=== PATIENT | female | born 1945 | race Caucasian/White ===

== ENCOUNTER 2017-10-15 15:29 | Inpatient (IN) | payer MEDICARE ==
[2017-10-15 17:04] LABS: Hematocrit 28 % (35-47); Mean Corpuscular HGB Conc 33 g/dl (31-36); Mean Corpuscular Hemoglobin 26 pg (27-31); Mean Corpuscular Volume 79 fL (80-97); Mean Platelet Volume 7 um3 (7.4-10.4); Platelet Count 291 10^3/ul (150-450); Red Blood Count 3.47 10^6/ul (4.0-5.4); Red Cell Distribution Width 15 % (10.5-15); White Blood Count 13.4 10^3/ul (3.5-10.8)
[2017-10-15 17:28] LABS: ABS Basophils 0 10^3/ul (0-0.2); ABS Eosinophils 0 10^3/ul (0-0.6); ABS Lymphocytes 0.5 10^3/ul (1.0-4.8); ABS Monocytes 0.4 10^3/ul (0-0.8); ABS Neutrophils 12.4 10^3/ul (1.5-7.7); ABS Nucleated RBC 0 10^3/ul; Eosinophil % 0.1 % (0-6); Lymphocyte % 3.4 % (25-47); Nucleated Red Blood Cells % 0.1
--- NOTE | 2017-10-15 19:10 | ED ---
Lopez Velásquez Stephanie, scribed for Tommie Colvin MD on 10/15/17 at 1620 . Skin Complaint - HPI Summary HPI Summary: The pt is a 71 y/o F BIBA with c/o a decubitus ulcer that was noticed after Thanksgiving. The pt was called in by Dr. Ulloa. The pt has MS. - History of Current Complaint Chief Complaint: EDRashSkinAbscess Time Seen by Provider: 10/15/17 15:38 Stated Complaint: RASH ON BUTTOCKS Hx Obtained From: Family/Sheet Heater Helper, EMS Pain Intensity: 0 Pain Scale Used: 0-10 Numeric Aggravating Symptom(s): Nothing Alleviating Symptom(s): Nothing - Allergy/Home Medications Allergies/Adverse Reactions: Allergies Allergy/AdvReac Type Severity Reaction Status Date / Time Adhesive Tape Allergy Unknown See Comment Verified 03/19/17 13:25 [Tegaderm Dressing] Chocolate Allergy Unknown See Comment Verified 03/19/17 13:25 Iodine AdvReac Unknown Unknown Verified 03/19/17 13:25 Reaction Details SALMON Allergy Unknown See Comment Uncoded 03/19/17 13:25 Home Medications: Home Medications Cholecalciferol CAP/TAB(NF) [Vitamin D3 CAP/TAB (NF)] 5,000 unit PO DAILY [History Confirmed 10/15/17] Coenzyme Q10 (NF) [Th Co Q-10] 1 cap PO DAILY 10/15/17 [History Confirmed ] Glucosamine CAP (NF) 1,000 cap PO DAILY 10/15/17 [History Confirmed 10/15/17] Magnesium Oxide TAB* [MagOx 400 TAB*] 400 mg PO DAILY 10/15/17 [History Confirmed 10/15/17] Neville-3 Fatty Acids (Nf) [Fish Oil (NF)] 1,000 mg PO BID 10/15/17 [History Confirmed 10/15/17] PMH/Surg Hx/FS Hx/Imm Hx History: Reports: Hx Kidney Stones, Hx Renal Disease Musculoskeletal History: Reports: Hx Osteoporosis - Cancer History Hx Chemotherapy: No Hx Radiation Therapy: No - Surgical History Surgery Procedure, Year, and Place: UROSTOMY; COLONOSTOMY; HYSTERECTOMY Infectious Disease History: No Infectious Disease History: Denies: Traveled Outside the [place] in Last 30 Days - Family History Known Family History: Positive: Unknown - The pt is unaware of any family history. - Social History Occupation: Retired Lives: With Family - Alcohol Use: None Hx Substance Use: No Substance Use Type: Reports: None Smoking Status (MU): Never Smoked Tobacco Review of Systems Negative: Fever Positive: Rash, Other - Open area to buttocks - ~ 3 inch [place] open area that is crater deep All Other Systems Reviewed And Are Negative: Yes Physical Exam - Summary Physical Exam Summary: Appearance: The patient is well-nourished in no acute distress and in no acute pain. Skin: The skin is warm and dry and skin color reflects adequate perfusion. There is a decubitus ulcer on the patient's buttock. HEENT: The head is normocephalic and atraumatic. The pupils are equal and reactive. The conjunctivae are clear and without drainage. Nares are patent and without drainage. Mouth reveals moist mucous membranes and the throat is without erythema and exudate. The external ears are intact. The ear canals are patent and without drainage. The tympanic membranes are intact. Neck: the neck is supple with full range of motion and non-tender. There are no carotid bruits. There is no neck vein distension. Respiratory: Chest is non-tender. Lungs are clear to auscultation and breath sounds are symmetrical and equal. Cardiovascular: Heart is regular rate and rhythm. There is no murmur or rub auscultated. There is no peripheral edema and pulses are symmetrical and equal. Abdomen: The abdomen is soft and non-tender. There are normal bowel sounds heard in all four quadrants and there is no organomegaly palpated. Musculoskeletal: There is no back tenderness noted. Extremities are non-tender with full range of motion. There is good capillary refill. There is no peripheral edema or calf tenderness elicited. Neurological: Patient is alert and oriented to person, place and time. The patient has symmetrical motor strength in all four extremities. Cranial nerves are grossly intact. Deep tendon reflexes are symmetrical and equal in all four extremities. Psychiatric: The patient has an appropriate affect and does not exhibit any anxiety or depression. Triage Information Reviewed: Yes Vital Signs On Initial Exam: Initial Vitals Temp Pulse Resp BP Pulse Ox 97.7 F 78 20 132/83 97 10/15/17 15:32 10/15/17 15:32 10/15/17 15:32 10/15/17 15:32 10/15/17 15:32 Vital Signs Reviewed: Yes Diagnostics - Vital Signs Vital Signs Temp Pulse Resp BP Pulse Ox 10/15/17 15:32 97.7 F 78 20 132/83 97 - Laboratory Lab Results: Lab Results 10/15/17 10/15/17 Range/Units 16:40 16:40 WBC 13.4 H (3.5-10.8) 10^3/ul RBC 3.47 L (4.0-5.4) 10^6/ul Hgb 9.0 L (12.0-16.0) g/dl Hct 28 L (35-47) % MCV 79 L (80-97) fL MCH 26 L (27-31) pg MCHC 33 (31-36) g/dl RDW 15 (10.5-15) % Plt Count 291 (150-450) 10^3/ul MPV 7 L (7.4-10.4) um3 Neut % (Auto) 93.2 H (38-83) % Lymph % (Auto) 3.4 L (25-47) % Clare % (Auto) 3.1 (1-9) % Eos % (Auto) 0.1 (0-6) % Baso % (Auto) 0.2 (0-2) % Absolute Neuts (auto) 12.4 H (1.5-7.7) 10^3/ul Absolute Lymphs (auto) 0.5 L (1.0-4.8) 10^3/ul Absolute Monos (auto) 0.4 (0-0.8) 10^3/ul Absolute Eos (auto) 0 (0-0.6) 10^3/ul Absolute Basos (auto) 0 (0-0.2) 10^3/ul Absolute Nucleated RBC 0 10^3/ul Nucleated RBC % 0.1 C-Reactive Protein 166.20 H (< 5.00) mg/L Result Diagrams: 10/15/17 16:40 Lab Statement: Any lab studies that have been ordered have been reviewed, and results considered in the medical decision making process. Course/Dx - Course Course Of Treatment: Ms Allen has an impressive decubitus ulcer and is being admitted by Diana Jordan - Diagnoses Provider Diagnoses: Decubitus ulcer - Physician Notifications Instructed by Provider To: Admit As Inpatient Discharge - Discharge Plan Condition: Stable Disposition: ADMITTED TO [facility] Referrals: Diana Jordan MD [Primary Care Provider] - The documentation as recorded by the Lopez macario Stephanie accurately reflects the service I personally performed and the decisions made by me, Tommie Colvin MD.
[2017-10-15 22:01] LABS: EGFR Non-African American 116.6 (>60)
--- NOTE | 2017-10-16 | HP ---
HISTORY AND PHYSICAL: DATE OF ADMISSION: 10/15/17 HISTORY OF PRESENT ILLNESS: Jyotsna Allen is a 71-year-old woman admitted with weakness and a left buttock decubitus ulcer with difficulty swallowing. The patient has a long history of multiple sclerosis with complications of neurogenic bladder, status post ileal conduit in 1998. She is also status post colostomy because of incontinence of bowels related to multiple sclerosis. She has had a progressive course of multiple sclerosis with decreased cognitive and physical function over many years. Her takes care of her at home. She has been nonambulatory for many years. She has had decubitus ulcers in the past , but not recently until about a month ago when her believes that her Roho cushion on which she sits did not have proper inflation. She developed irritation of the left buttock. Since that time, he has been trying to care for an open area, which has gotten worse. Along with this, she has had difficulty eating. A few weeks ago, she was able to feed herself. More recently , he has had to feed, her and taking several hours to eat a meal. Over the last few days, she has had difficulty swallowing. Last night, she only ate about one bite of dinner. This morning, however, she did eat breakfast, but he had to feed her and it took a long time to swallow. I had spoken with him last week, suggested she be evaluated, but he decided to wait until this week. She came to the emergency room and is being admitted at this time. PAST MEDICAL HISTORY: Significant for recurrent urinary tract infections, although this has been less of a problem in recent years. She has ureteral stents which get changed every couple of months at the [facility] in [place]. They were changed today. This is done by [facility] there. 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 She has a known kidney stone, which has been felt to be too large to remove. In 2004, she had sepsis due to staph aureus, non-MRSA. Past medical history is otherwise significant for multiple sclerosis since age 21, history of osteoporosis with fractures in her legs, history of chronic kidney disease. She had a previous history of hypertension and had been on lisinopril, but her blood pressure had been more normal recently and so the lisinopril had been stopped. PAST SURGICAL HISTORY: Includes sigmoid loop colostomy, creation of ileal conduit, hysterectomy, bilateral salpingo-oophorectomy, appendectomy, small bowel obstruction leading to lysis of adhesions in October 1999. CURRENT MEDICATIONS: As follows: 1. Probiotic 1 daily. 2. Selenium 200 mcg daily. 3. Folic acid 800 mcg daily. 4. Vitamin D3, 2000 units daily. 5. Ferrous gluconate 27 mg daily. 6. Zinc 50 mg daily. 7. Niacinamide 125 mg daily. 8. B12, 500 mcg daily. 9. Vitamin C 500 mg daily. 10. Vitamin E 400 units daily. 11. Pyridoxine (B6) 50 mg daily. 12. Vitamin K2, 40 mcg daily. 13. Magnesium oxide 400 mg daily. 14. Glucosamine 1000 mg daily. 15. Exeter-3 fatty acids 1000 mg b.i.d. 16. Coenzyme-Q10, 1 caps daily. ALLERGIES: To DITROPAN, IODINATED CONTRAST, TEGADERM. FAMILY HISTORY: Mother of bladder cancer at age 76. She had a history of breast cancer. Two maternal aunts have had bladder cancer. Father had Parkinson's disease in his 70s and at age 80. One sister recently while being treated for metastatic bile duct cancer. HABITS: Tobacco, never. EtOH, none. Caffeine, none. REVIEW OF SYSTEMS: General: She has been quite weak. Her appetite has been diminished (see above). She has been cold, but denies chills or sweats. She has not had a fever. She has been sleeping much of the time. Skin: See above. HEENT: Negative. Nodes: Negative. Heme: See above. Endocrine: Negative. Respiratory: Negative. Cardiovascular: See above. GI: See above. HEADER DOCK: Menopausal. See above. Musculoskeletal: See above. Neuro: See above. PHYSICAL EXAMINATION GENERAL: She is a thin and cachectic appearing white female lying on the stretcher. Alert. Her is speaking and answering most of her questions , but she is able to talk but speech is slurred. She is in no acute distress. VITAL SIGNS: Blood pressure 132/83, pulse 78, respirations 20, temperature 97.7 , O2 sat 97%. Her blood pressure was subsequently being measured with an automatic cuff and the readings were incorrect. When measured with a manual adult cuff (although too large for her, pediatric cuff not available in the ER) , blood pressure was 122/70 (versus 255/222 with the automatic cuff). SKIN: Shows 5.5 cm diameter ulcer extending down to the muscle of the left buttock with yellow tissue at the base. The skin around it is slightly pink, but no clear cellulitis. HEENT: Atraumatic, normocephalic. Full EOMs. Mucous membranes appear moist. NECK: Supple. There is no thyromegaly. CHEST: Clear to auscultation. HEART: Regular rhythm. Normal S1, S2. There are no murmurs, gallops or rubs. ABDOMEN: Distended, soft, nontender. There is an ileal conduit bag on the right. Urine looks dark. There is a colostomy bag on the left with liquid dark stool. She has no flank tenderness. Bowel sounds are present. EXTREMITIES: Thin. She has no edema. She has little movement of her upper extremities but no movement of her legs. Her feet are deviated to the left. BACK: Shows lordosis. NEUROLOGIC: Strength 1/5 upper extremities. Does not move lower extremities. LABORATORY DATA: CBC: WBC 13.4; H and H 9/28; MCV 79; PLT 291,000. Chemistries: Sodium 108, potassium 3.9, chloride 79, CO2 of 21, BUN/creatinine 20/0.52, glucose 106, calcium 8.4, CRP 166.20, albumin 2.8. Rest of the comprehensive metabolic panel is otherwise within normal limits. IMPRESSION: The patient with decubitus ulcer, for which we will get a surgical consultation. Her sodium is critically low and will start IV hypertonic saline. She is a DNR per previous wishes, MOLST form filled out and updated. I will not give her DVT prophylaxis since her mobility is no different in the hospital from what it has been at home. [id number]/[facility] #: [id number] [facility]
[2017-10-16] MEDS ORDERED: Sodium Chloride 3% HYPERTONIC* 500 ML IVPB SCH ×2 (01:00→06:00)
[2017-10-16 01:48] LABS: Urine Appearance Cloudy; Urine Blood 1+ (Negative); Urine Color Amber; Urine Ketones Trace (Negative); Urine Protein 2+(100 mg/dL) (Negative); Urine Urobilinogen Negative (Negative)
[2017-10-16 05:49] LABS: ABS Basophils 0 10^3/ul (0-0.2); ABS Eosinophils 0 10^3/ul (0-0.6); ABS Lymphocytes 0.7 10^3/ul (1.0-4.8); ABS Monocytes 0.7 10^3/ul (0-0.8); ABS Neutrophils 8.3 10^3/ul (1.5-7.7); ABS Nucleated RBC 0 10^3/ul; Eosinophil % 0.2 % (0-6); Hematocrit 23 % (35-47); Hemoglobin 7.9 g/dl (12.0-16.0); Mean Corpuscular HGB Conc 34 g/dl (31-36); Mean Corpuscular Hemoglobin 27 pg (27-31); Mean Corpuscular Volume 78 fL (80-97); Mean Platelet Volume 7 um3 (7.4-10.4); Nucleated Red Blood Cells % 0; Platelet Count 228 10^3/ul (150-450); Red Blood Count 2.97 10^6/ul (4.0-5.4); Red Cell Distribution Width 15 % (10.5-15); White Blood Count 9.7 10^3/ul (3.5-10.8)
[2017-10-16 06:04] LABS: EGFR Non-African American 149.2 (>60)
--- NOTE | 2017-10-16 07:47 | RAD ---
HISTORY: Abdominal distention COMPARISONS: September 25, 2016 TECHNIQUE: Multiple contiguous axial CT scans were obtained of the chest, abdomen, and pelvis, without intravenous contrast enhancement. Coronal and sagittal multiplanar reformations are submitted for review.. Oral contrast was not administered. The study is limited by the lack of intravenous contrast. This limits evaluation of the solid organs and vasculature. FINDINGS: CHEST NECK AND THYROID: The lower neck and thyroid are unremarkable. CHEST WALL: There is no lower cervical, axillary, or supraclavicular lymphadenopathy by size criteria. HEART AND PERICARDIUM: The heart is unremarkable. AORTA AND PULMONARY VASCULATURE: The aorta and pulmonary vasculature are normal. MEDIASTINUM: There is no mediastinal lymphadenopathy by size criteria. BETHANY: There is no hilar lymphadenopathy by size criteria. AIRWAY AND ESOPHAGUS: The airway is unremarkable, without endobronchial filling defect. The esophagus is grossly normal. LUNG PARENCHYMA: The lungs are clear. PLEURA: There are small bilateral, right greater than left, pleural effusions. BONES AND SOFT TISSUES: There is diffuse osteopenia. Mild degenerative changes are noted. ABDOMEN/PELVIS: LIVER: The liver is normal in shape, size, contour, and attenuation. BILE DUCTS: There is no intrahepatic or extrahepatic biliary dilatation. GALLBLADDER: The gallbladder is normal, without pericholecystic inflammatory change. PANCREAS: The pancreas is normal, without mass or ductal dilatation. SPLEEN: Normal in size and appearance. UPPER GI TRACT: Evaluation of the gastrointestinal tract is limited by incomplete gastric distention. The upper GI tract is unremarkable. SMALL BOWEL & MESENTERY: The small bowel is normal in contour, course, and caliber. There is no obstruction or dilatation. COLON: A colostomy is noted. There is a radiopaque foreign body noted at the stoma best seen on axial image 27 measuring 1 cm in size. There is large amount of stool within the colon. ADRENALS: Normal bilaterally. KIDNEYS: There are bilateral ureteral stents, though the position of the right ureteral stent is indeterminate and may be extrarenal. There are multiple calculi of the proximal left ureter and renal calyces bilaterally. There is no appreciable hydronephrosis. There is a small amount of calyceal gas in the right. BLADDER: The patient appears to be status post cystectomy with ileal conduit. Bilateral ureteral stents are noted. The position of the pelvic portion of the right ureteral stent is indeterminate and may be extrarenal. PELVIC ORGANS: The pelvic organs are not visualized. AORTA: The aorta is normal. IVC: Unremarkable LYMPH NODES: There is no lymphadenopathy by size criteria. ABDOMINAL WALL: There is no evidence for abdominal wall hernia. BONES AND SOFT TISSUES: There is a compression deformity of T12 which is new when compared to September 25, 2016. There is diffuse osteopenia. There are mild diffuse degenerative changes. OTHER: None IMPRESSION: 1. LIMITED STUDY. 2. SMALL BILATERAL PLEURAL EFFUSIONS, GREATER ON THE RIGHT THAN ON THE LEFT. 3. THE PATIENT IS STATUS POST COLOSTOMY. THERE IS A SMALL RADIOPAQUE FOREIGN BODY THE LEVEL OF THE STOMA. 4. THERE IS LARGE AMOUNT OF STOOL THROUGHOUT THE COLON. 5. THE PATIENT IS STATUS POST CYSTECTOMY WITH ILEAL CONDUIT. BILATERAL URETERAL STENTS ARE NOTED. THE POSITION OF THE RIGHT URETERAL STENT IS INDETERMINATE AND MAY BE EXTRARENAL. THERE IS BILATERAL NEPHROLITHIASIS. THERE IS NO HYDRONEPHROSIS. 6. THERE IS SMALL AMOUNT OF CALYCEAL GAS IN THE RIGHT WHICH MAY BE RELATED TO INSTRUMENTATION, THOUGH GAS PRODUCING INFECTION IS ALSO WITHIN THE DIFFERENTIAL. 7. THERE IS DIFFUSE OSTEOPENIA, WITH AN AGE-INDETERMINATE COMPRESSION DEFORMITY OF T12, WITHOUT OSSEOUS RETROPULSION, NEW WHEN COMPARED TO SEPTEMBER 25, 2016.
[2017-10-16] MEDS: Cholecalciferol TAB* 1000 UNITS PO SCH (09:46)
--- NOTE | 2017-10-16 11:31 | CONSULT ---
Consult Consult: CRITICAL CARE MEDICINE DATE: 10/16/17 TIME: 1100 PRIMARY CARE PROVIDER: Nikki REFERRING PROVIDER: Nikki REASON FOR CONSULT: assistance with severe hyponatremia and hypertonic saline HISTORY OF PRESENT ILLNESS: 71 F with h/o debilitating ms with neurogenic bladder requiring group home ileoconduit, ureteral stents, uti history, and sig loop colostomy presenting with progressive decline in function and thriving status with anorexia ensuing. Admitted with severe hyponatremia, decubitus, microcytic anemia, mod-severe malnutrition. REVIEW OF SYSTEMS: As per HPI, limited from pt. PAST MEDICAL HISTORY: Reviewed per HPI and H&P by Dr. Jordan. MEDICATIONS: Reviewed. ALLERGIES: Reviewed. SOCIAL HISTORY: Reviewed. . FAMILY HISTORY: Cancer PHYSICAL EXAM: frail, cachectic Vital Signs: Reviewed. Neurologic: awakens and communicates slowly. question if just baseline. HEENT: anciteric, poor dentition, mmm Cardiovascular: reg, no m Respiratory: clear, nml phases Abdomen: ilieostomy and ostomy intact, nt. Extremities: frail, no edema. back, sarcum not visulized. Access: piv LABS: Reviewed. Last Na 114 IMAGING: Reviewed. MEDICATIONS: Reviewed. ASSESSMENT/PLAN: 71 F Severe hyponatremia - component of hypovolemic and SIADH on perhaps more acute on chronic dynamics. Has chronic hyponatremia with labs here dictating 120s baseline. Not on diuretics, and acei in past no longer in use. Spot Na was slightly up. Sp gravity low. TSH and cortisol coming back ok. Her her loop ostomy and ileoconduit, decubitus likely contributing. Starting to improve numbers with 3% but probably won't really need this. Can support with low volume dose of 0.9%NS today and f/u Na q4 while monitoring urine out. Hopeful she can be chloride responsive and equilibrate without needing lasix on top if retaining water while loosing Na. HCO3 probably low due to GI losses vs RTA Moderate- severe malnutrition, phos needing f/u, swallow eval, and primary already consulting surgery for decubitus needs. ICU happy to help manage Na today and should be stabilized towards 120s at most come tomorrow. Supportive and preventative care per primary. Disposition: ICU today; likely floor late today or more likely tomorrow Code Status: DNR Critical Care Time: 35min Henny Griffin DO
[2017-10-16] MEDS ORDERED: NS 0.9% w/ 20 Meq KCL 1000 ML* 1,000 ML IV SCH (12:00)
[2017-10-16] MEDS ORDERED: Zosyn per Pharmacy* NOTE FOLLOW UP PRN (13:39)
[2017-10-16] MEDS ORDERED: ZOSYN 3.375 GM x ONE DOSE over 30 miuntes IVPB ×2 (14:00)
--- NOTE | 2017-10-16 14:07 | CONS ---
CC: Dr. Diana Jordan; [facility] SURGICAL CONSULTATION REPORT: DATE OF CONSULT: 10/16/17 LOCATION: The patient was seen in ICU room 7. HISTORY OF PRESENT ILLNESS: Our services were contacted by the admitting providers to evaluate Ms. Devan mims, a 71-year-old female, with longstanding history of MS, who has been mostly wheelchair bound, u tilizing ROHO cushions and notably developed a left buttock to sacral decubitus ulcer in the previous weeks. History was obtained through the chart. The patient nods her head and answers softly to mayank salomon, but most of this report was gathered through the chart. Current treatment at this point is D uoDERM dressing. The patient was admitted namely for severe hyponatremia, but was also noted to have this ulceration. The patient has had previous buttock and sacral ulcers in the past that had been treated expectantly and ended with healing. The patient has been diverted both the urinary and colonic with ostomies on her abdomen. These are being treated by the nurses and there are no complaints of these at this time . PAST MEDICAL HISTORY: Reviewed. PHYSICAL EXAM: The patient's temperature 99.8, she has been afebrile, this is T- max; heart rate in the 80s to 90s; blood pressure 91/41. The patient has body mass index of 13. Focus examination of t he left buttock reveals a 5 x 5 x 1 cm decubitus ulcer extending down to the muscular layer and overl bryson the periosteum, but without probing to bone, but does tunnel in the inferior aspect at approxima tely 7 o'clock to the thigh. This tunnel was approximately 9 cm and seropurulent drainage was noted. This was foul smelling and it was cultured. The periphery of the wound shows epibole with erythema . There is no tenderness. There is no fluctuance. The midline sacrum and right buttock are free of disease, but shows scarring from previous ulcers. DIAGNOSTIC STUDIES/LAB DATA: CT scan reviewed of the abdomen and pelvis: It does show air within th e soft tissues on the buttock, but it did not extend to the thigh. Labs show white count of 9.7. The patient presented with CRP of 166 and repeat today shows 133. Her sodium has been as low as 107 on this admission. IMPRESSION: A 71-year-old female with multiple sclerosis and severe malnutrition, now with hyponatre donna and recurring buttock ulceration with purulent drainage. RECOMMENDATION: 1. At this time is wound care. This will consist of iodoform packing to the upper thigh and wet-to- dry dressings daily and this has been ordered. 2. We will follow up cultures and the patient would likely benefit from starting of antibiotics. I will bring this up with the primary team. 3. Serial turning and special mattress if needed. The patient's nurses assured me she is being rota sebastian 2-hour basis without placing on her left side. We will follow every other day at this time. Ple ase feel free to contact the surgical team if needed. No debridement at this time as the patient is not a candidate for operative intervention. The operation at this point would possibly consist of chris ne biopsy. The patient could undergo triple bone phase study to see if there is involvement and the primary team could consider Infectious Disease consultation. [id number]/[facility] #: [id number]
[2017-10-16] MEDS: ZOSYN 3.375 GM Q8H per EXTENDED INFUSION IVPB SCH ×2 (18:34)
[2017-10-17] MEDS: ZOSYN 3.375 GM Q8H per EXTENDED INFUSION IVPB SCH ×6 (01:32→18:12)
[2017-10-17 05:55] LABS: Hematocrit 17 % (35-47); Hemoglobin 5.9 g/dl (12.0-16.0); Mean Corpuscular HGB Conc 34 g/dl (31-36); Mean Corpuscular Hemoglobin 27 pg (27-31); Mean Corpuscular Volume 78 fL (80-97); Mean Platelet Volume 7 um3 (7.4-10.4); Platelet Count 241 10^3/ul (150-450); Red Blood Count 2.21 10^6/ul (4.0-5.4); Red Cell Distribution Width 15 % (10.5-15); White Blood Count 9.8 10^3/ul (3.5-10.8)
[2017-10-17 06:02] LABS: EGFR Non-African American 153.4 (>60)
[2017-10-17 06:16] LABS: Hematocrit 21 % (35-47); Hemoglobin 7.1 g/dl (12.0-16.0)
[2017-10-17] MEDS: Cholecalciferol TAB* 1000 UNITS PO SCH (10:36)
[2017-10-17] MEDS ORDERED: Magnesium Sulfate 2 GM IV IVPB ONE (12:30)
[2017-10-18] MEDS: ZOSYN 3.375 GM IVPB SCH ×8 (01:45→20:27)
[2017-10-18 07:36] LABS: ABS Basophils 0 10^3/ul (0-0.2); ABS Eosinophils 0 10^3/ul (0-0.6); ABS Lymphocytes 0.7 10^3/ul (1.0-4.8); ABS Monocytes 0.7 10^3/ul (0-0.8); ABS Neutrophils 6.1 10^3/ul (1.5-7.7); ABS Nucleated RBC 0 10^3/ul; Eosinophil % 0.3 % (0-6); Hematocrit 21 % (35-47); Lymphocyte % 9.8 % (25-47); Mean Corpuscular HGB Conc 34 g/dl (31-36); Mean Corpuscular Hemoglobin 27 pg (27-31); Mean Corpuscular Volume 79 fL (80-97); Mean Platelet Volume 7 um3 (7.4-10.4); Nucleated Red Blood Cells % 0; Platelet Count 226 10^3/ul (150-450); Red Blood Count 2.62 10^6/ul (4.0-5.4); Red Cell Distribution Width 15 % (10.5-15); White Blood Count 7.6 10^3/ul (3.5-10.8)
[2017-10-18 08:03] LABS: EGFR Non-African American 145.2 (>60)
--- NOTE | 2017-10-18 09:45 | PN ---
Progress Note - Progress Note Date of Service: 10/18/17 SOAP: Subjective: Pt seen and examined today. Transferred to floor, Na improved, pt eating at this time Objective: af vss L buttock ulcer: 5x5x1 cm ulcer involving bone Stage 4 decubitus ulcer; packing removed from the inferior tunnel site and not replaced. sharp areas of bone suggesting involvement Microbiology 10/15/17 16:40 Blood Venous Aerobic Blood Culture - Preliminary 10/15/17 16:40 Blood Venous Anaerobic Blood Culture - Preliminary 10/16/17 00:31 Blood Venous Aerobic Blood Culture - Preliminary No Growth Day 2 10/16/17 00:31 Blood Venous Anaerobic Blood Culture - Preliminary No Growth Day 2 10/16/17 00:17 Blood Venous Aerobic Blood Culture - Preliminary No Growth Day 2 10/16/17 00:17 Blood Venous Anaerobic Blood Culture - Preliminary No Growth Day 2 10/16/17 00:56 Urine Urine Culture - Final 10/16/17 12:30 Buttock Gram Stain - Final 10/16/17 00:56 Nasal Nasal Screen MRSA (PCR)(DEMETRI) - Final Mrsa Negative Assessment: stage 4 sacral ulcer involving bone; tunneled area closing over with no growth at this time. Plan: ID consult we can perfor bone biopsy early this week for abx direction, however, I do not recommend pt undergo excisional debridement of this area as she is nutritionally compromised. Consider palliative care consult
[2017-10-18] MEDS: Ferrous Sulfate TAB* 325 MG PO SCH (17:25)
[2017-10-19] MEDS: ZOSYN 3.375 GM IVPB SCH ×4 (02:00→09:09)
[2017-10-19 08:04] LABS: Hematocrit 20 % (35-47); Hemoglobin 6.8 g/dl (12.0-16.0); Mean Corpuscular HGB Conc 34 g/dl (31-36); Mean Corpuscular Hemoglobin 27 pg (27-31); Mean Corpuscular Volume 79 fL (80-97); Mean Platelet Volume 7 um3 (7.4-10.4); Platelet Count 213 10^3/ul (150-450); Red Blood Count 2.51 10^6/ul (4.0-5.4); Red Cell Distribution Width 15 % (10.5-15); White Blood Count 4.3 10^3/ul (3.5-10.8)
[2017-10-19 08:20] LABS: EGFR Non-African American 153.4 (>60)
[2017-10-19] MEDS: Ferrous Sulfate TAB* 325 MG PO SCH (09:09)
[2017-10-19] MEDS: Piperacillin/Tazobac ADVAN(*) 3.375 GM in NS 0.9% 100 ML* 100 ML IVPB SCH (16:31)
--- NOTE | 2017-10-19 20:15 | CONS ---
CONSULTATION REPORT: DATE OF CONSULT: 10/19/17 REQUESTING PHYSICIAN: Diana Jordan MD CONSULTING SERVICE: Infectious Disease. REASON FOR CONSULTATION: Sacral decubitus ulcer. IMPRESSION: 1. Left ischial decubitus ulcer with exposed bone, acute osteomyelitis. There is bacteroides growing likely is poly-microbial. No Staphylococcus aureus present. She does have Streptococcus constellatus, 2 of 6 blood culture bottles could be contaminant, could be related to the initial infection because not all cultures are positive and she has no stigmata of infective endocarditis. I think endocarditis is unlikely. 2. Severe progressive multiple sclerosis. 3. Cachexia. 4. History of ileal conduit. RECOMMENDATIONS: 1. Agree with Zosyn that will decrease to every 8 hours given her weight. Obtain on a few days of initial antibiotics and then longer term oral antibiotics with a combination that could include Flagyl 250 mg by mouth 3 times a day and doxycycline 100 mg by mouth twice a day. 2. Nutrition assessment. HISTORY OF PRESENT ILLNESS: This is a 71-year-old woman with a history of multiple sclerosis, cachexia, admitted with worsening decubitus ulceration. She feels this developed around August when a pillow she was using was under inflated. She developed a sore there, which progressed despite her and her 's best efforts. Pain progressed to open an area and she was admitted by Dr. Jordan on October 15 because of worsening pain and deepening ulcer. She had had no fevers, chills, or sweats. She is fed to her she said. She has a CT of the chest, abdomen, and pelvis showed bilateral ureteral stents, colostomy, ileal conduit and cystectomy, nephrolithiasis, osteopenia, and T12 compression deformity. She was started here on Zosyn. She had a wound culture growing bacteroides. She has been followed by Dr. Calabrese and Dr. Jordan. PAST MEDICAL HISTORY: 1. Multiple sclerosis with contraction deformities and neurogenic bladder. 2. Past urinary tract infection. 3. Nephrolithiasis with ureteral stenosis, status post ureteral stents bilaterally which have been managed since 2003. 4. Staph aureus sepsis, 2004. 5. Osteoporosis. Bilateral leg fracture. 6. Chronic kidney disease. 7. Hypertension. Normalized recently. 8. Status post sigmoid loop colostomy and ileal conduit. 9. Status post hysterectomy. 10. Status post bilateral salpingo-oophorectomy. 11. Status post appendectomy. 12. History of bowel obstruction and lysis of adhesions. 13. Status post cystectomy. ALLERGIES: DITROPAN, IODINE, and TEGADERM. MEDICATIONS: 1. Zosyn 3.375 g IV every 6 hours. 2. Ferrous sulfate. SOCIAL HISTORY: She is a nonsmoker. No alcohol. FAMILY HISTORY: Mother with bladder cancer at 76. Father at age 80, he had Parkinson's. REVIEW OF SYSTEMS: A 14-point review of system was negative except as noted above. PHYSICAL EXAMINATION: Vital Signs: Temperature 36.3, heart rate 70, respiratory rate 16, blood pressure 107/54, and O2 sat 100% on room air. In general, she is awake, not in distress. She is cachectic. HEENT: There is no conjunctival hemorrhage. Oropharynx without lesions. Neck is supple. Lymph Nodes: There is no cervical, inguinal, axillary, or epitrochlear lymphadenopathy. Heart is regular rate and rhythm without murmurs, rubs, or gallops. Lungs: Clear to auscultation bilaterally. Abdomen: Soft, nontender , nondistended. There is a left-sided ostomy with liquid stool. There is a more midline ostomy with clear urine. Skin: There is no rash or splinter hemorrhages. Musculoskeletal: There is no spine tenderness to palpation. There is 4 to 5 cm left ischial soft tissue defect with palpable bone. There is some scant necrotic material. There is no surrounding erythema. DIAGNOSTIC STUDIES/LAB DATA: White blood cell count 4, hemoglobin 6.8, platelets 213. Creatinine 0.4. CRP 123, down from 166. Please see impressions and recommendations outlined above. Thank you for asking me to see Ms. Allen in consultation. [id number]/[facility] #: [id number] [facility]ALTH[facility]ons[facility]
[2017-10-20] MEDS: Piperacillin/Tazobac ADVAN(*) 3.375 GM in NS 0.9% 100 ML* 100 ML IVPB SCH ×2 (01:40→08:03)
[2017-10-20 05:18] LABS: Hematocrit 20 % (35-47); Hemoglobin 6.6 g/dl (12.0-16.0); Mean Corpuscular HGB Conc 34 g/dl (31-36); Mean Corpuscular Hemoglobin 27 pg (27-31); Mean Corpuscular Volume 79 fL (80-97); Mean Platelet Volume 6 um3 (7.4-10.4); Platelet Count 236 10^3/ul (150-450); Red Cell Distribution Width 15 % (10.5-15); White Blood Count 9.3 10^3/ul (3.5-10.8)
[2017-10-20 05:50] LABS: EGFR Non-African American 124.9 (>60)
[2017-10-20] MEDS: Ferrous Sulfate TAB* 325 MG PO SCH (08:38)
[2017-10-20] MEDS: Piperacillin/Tazobactam 13.5 GM IV 24 hour continuous infusion IVPB SCH ×2 (10:41)
[2017-10-21] MEDS: Ferrous Sulfate TAB* 325 MG PO SCH (09:16)
[2017-10-21] MEDS: Piperacillin/Tazobactam 13.5 GM IV 24 hour continuous infusion IVPB SCH ×2 (13:22)
[2017-10-22 08:14] LABS: Hematocrit 26 % (35-47); Hemoglobin 8.8 g/dl (12.0-16.0); Mean Corpuscular HGB Conc 34 g/dl (31-36); Mean Corpuscular Hemoglobin 27 pg (27-31); Mean Corpuscular Volume 81 fL (80-97); Mean Platelet Volume 6 um3 (7.4-10.4); Platelet Count 201 10^3/ul (150-450); Red Blood Count 3.24 10^6/ul (4.0-5.4); Red Cell Distribution Width 16 % (10.5-15); White Blood Count 6.6 10^3/ul (3.5-10.8)
--- NOTE | 2017-10-22 08:52 | PN ---
Progress Note - Progress Note Date of Service: 10/22/17 SOAP: Subjective: CC: decubitus ulcer HPI: 71 year old woman with MS, cachexia and left ischeal decubitus ulcer, has been on zosyn a week. Pain is a little better, RN notes no drainage through dressing. No change in ostomy output. No fever or rash. Objective: Vital Signs Temp 36.7 C 10/22/17 03:11 Pulse 78 10/22/17 03:11 Resp 16 10/22/17 03:11 BP 136/49 10/22/17 03:11 Pulse Ox 99 10/22/17 03:11 Intake & Output 10/21/17 10/22/17 10/22/17 18:59 06:59 18:59 Intake Total 120 603 Output Total 750 825 Balance -630 -222 Intake: IVPB 281 ABX - PIPERACILLIN 281 Oral 120 50 Packed Cells 272 Output: Urine 450 700 Villela 0 Colostomy 300 125 Other: # Bowel Movements 0 Gen:awake, no distress HEENT:PERRL, MMM Heart:RRR no murmur Lungs:CTA BL Abd:+BS NTND soft; ostomy with liquid stool Skin: no rash MSK: L ischeal wound no surrounding erythema Laboratory Results - last 24 hr 10/20/17 10/22/17 10/22/17 05:06 07:56 07:56 WBC 6.6 RBC 3.24 L Hgb 8.8 L Hct 26 L MCV 81 MCH 27 MCHC 34 RDW 16 H Plt Count 201 MPV 6 L Sodium 132 L Potassium 4.0 Chloride 101 Carbon Dioxide 26 Anion Gap 5 BUN 18 Creatinine 0.50 L Est GFR ( Amer) 156.9 Est GFR (Non-Af Amer) 122.0 BUN/Creatinine Ratio 36.0 H Glucose 84 Calcium 8.6 Total Bilirubin 0.40 AST 13 ALT 9 Alkaline Phosphatase 59 Total Protein 5.5 L Albumin 2.4 L Globulin 3.1 Albumin/Globulin Ratio 0.8 L Prealbumin 10 L Blood Type O Positive Antibody Screen Negative Crossmatch See Detail Assessment: 1. chronic pressure related left ischeal wound, present on admission 2. chronic left ischeal osteomyelitis 3. cachexia 4. MS Plan: 1. DC zosyn, start doxycycline 100 mg po bid for 1 month assuming she tolerates it. Discussed with Dr Jordan
[2017-10-22] MEDS: Ferrous Sulfate TAB* 325 MG PO SCH (09:41)
[2017-10-22] MEDS: DOXYcycline CAP(*) 100 MG PO SCH ×2 (09:41→20:24)
[2017-10-23] MEDS: Ferrous Sulfate TAB* 325 MG PO SCH (09:49)
[2017-10-23] MEDS: DOXYcycline CAP(*) 100 MG PO SCH (09:49)
[2017-10-23 14:28] VITALS: BP 120/62
--- NOTE | 2017-10-23 15:50 | PN ---
Progress Note - Progress Note Date of Service: 10/23/17 SOAP: Subjective: Pt seen examined with PMD. Appreciate ID note Objective: afebrile L ischium: 5 x 6cm ulcer the in undermined at the superior aspect. mild skin necrosis at 7 o'clock, [id number] drainage c/w serous fluid. exposed bone, tendon, and muscle. No fluctuence Assessment: L ischial ulcer, subacute osteomyelitis Plan: abx follow up at wound center Nutrition frequent turning and off-loading. No debridement recommended at this time- pt frail with malnutrition and I am concerned that excisional debridement will only increase size of wound wet to dry dressing for now daily ( can be done QOD) and possibly convert to Santyl as outpatient.
== END 2017-10-23 17:20 | disposition home health service (06) | DRG 643 ==
LOC: ED 15:29 → MED 19:33 → ICU 23:00 → MED 10-17 14:07
PROVIDERS: ADMIT Internal Medicine Geriatric Medicine; ATTEND Internal Medicine Geriatric Medicine
PROC: 30233N1 Transfusion of Nonautologous Red Blood Cells into Peripheral Vein, Percutaneous Approach (ICD-10-PCS; principal; 2017-10-21)
DX: E22.2 Syndrome of inappropriate secretion of antidiuretic hormone (principal); L89.324 Pressure ulcer of left buttock, stage 4; E43 Unspecified severe protein-calorie malnutrition; M86.152 Other acute osteomyelitis, left femur; R78.81 Bacteremia; G35 Multiple sclerosis; M86.652 Other chronic osteomyelitis, left thigh; R64 Cachexia; M80.062A Age-related osteoporosis with current pathological fracture, left lower leg, initial encounter for fracture; M80.061A Age-related osteoporosis with current pathological fracture, right lower leg, initial encounter for fracture; Z68.1 Body mass index [BMI] 19.9 or less, adult; N31.9 Neuromuscular dysfunction of bladder, unspecified; Z96.0 Presence of urogenital implants; I12.9 Hypertensive chronic kidney disease with stage 1 through stage 4 chronic kidney disease, or unspecified chronic kidney disease; N18.9 Chronic kidney disease, unspecified; Z66 Do not resuscitate; D50.9 Iron deficiency anemia, unspecified; N20.0 Calculus of kidney; Z90.710 Acquired absence of both cervix and uterus; Z90.722 Acquired absence of ovaries, bilateral; Z88.8 Allergy status to other drugs, medicaments and biological substances; Z91.041 Radiographic dye allergy status; Z91.048 Other nonmedicinal substance allergy status; Z87.440 Personal history of urinary (tract) infections; Z93.3 Colostomy status; Z80.52 Family history of malignant neoplasm of bladder; Z80.3 Family history of malignant neoplasm of breast; Z80.0 Family history of malignant neoplasm of digestive organs; Z82.0 Family history of epilepsy and other diseases of the nervous system
CPT/HCPCS: 36415; 71250; 74176; 80048; 80053; 81003; 81015; 82533; 82728; 83540; 83550; 83735; 83930; 83935; 84100; 84134; 84300; 84443; 85014; 85018; 85025; 85027; 86140; 86141; 86850; 86900; 86901; 86922; 87040; 87070; 87076; 87077; 87086; 87186; 87205; 87641; A9270-GY; J2543; J3475; J3480; P9040

== ENCOUNTER 2018-07-20 17:06 | Inpatient (IN) | payer MEDICARE ==
--- OUTSIDE RECORDS SUMMARY | 2018-07-20 17:56 | XMS REPORT ---
:1945 External Reference #:[id number] Author Organization [employer] Address [address] [place] [address] Phone [phone] Care Team Providers Name Role Phone Diana Jordan MD Primary Care Physician Unavailable Payers Type Date Identification Numbers Payment Provider Subscriber Medicare Primary Policy Number: [id number] Medicare Jyotsna Allen PayID: [id number] [address] [place] [address] [facility] Policy Number: [id number] [facility] Jyotsna Allen Group Number: [id number] [address] PayID: [id number] [place] [address] Problems Description No Information Social History Type Date Description Comments Lives With Spouse Occupation Disabled Smoking Patient has never smoked Exercise Type/Frequency Exercises regularly Allergies, Adverse Reactions, Alerts Date Description Reaction Status Severity Comments 01/15/2018 NKDA active Medications Medication Date Status Form Strength Qnty SIG Indications Ordering Provider Vitamin C 00/ Active Chewtabs 500mg 1 by mouth Unknown 0000 every day Vitamin E / Active Capsules 400Unit 1 by mouth Unknown 0000 every day [id number] / Active Chewtabs 1mg take one Unknown 0000 capsule/tablet daily sublingually Folic Acid / Active Tablets 1mg 1 by mouth Unknown 0000 every day Iron / Active Tablets 325mg 1 by mouth Unknown High-Potency 0000 three times a day Glucosamine 0000/ Active Tablets 1 twice a day Unknown Chondroitin 0000 (250/200 Double capsules) Strength Fish Oil / Active Capsules 500mg 1 by mouth Unknown 0000 twice a day Niacin 00/00/ Active Tablets 500mg 1 tabs by Unknown 0000 mouth every day B6 Natural 00/ Active Tablets 100mg take one Unknown 0000 capsule/tablet daily by mouth K2 Plus D3 0000/ Active Tablets 100-1000mc Unknown 0000 g-Unit Magnesium / Active Powder Unknown Malate 0000 Succinic Acid / Active Crystals Unknown 0000 Lipoic Acid / Active Capsules 150mg Unknown 0000 No Active Unknown Medications 2017 - 2017 Vital Signs Date Vital Result Comment 07/20/2018 Height 68 inches 5'8" Weight 80.00 lb Heart Rate 86 /min BP Systolic 100 mmHg BP Diastolic 58 mmHg Respiratory Rate 18 /min Body Temperature 96.4 F Pain Level 0 BMI (Body Mass Index) 12.2 kg/m2 01/15/2018 Height 68 inches 5'8" Weight 80.00 lb per Heart Rate 84 /min BP Systolic Sitting 94 mmHg BP Diastolic Sitting 58 mmHg Respiratory Rate 14 /min Body Temperature 96.8 F BMI (Body Mass Index) 12.2 kg/m2 Results Test Date Test Result H/L Range Note Laboratory test 06/17/2018 Epifix 3.5X3.5 SEE RESULTS BELO 1, 2 finding Mesh <SEE NOTE> Comp Metabolic Panel 12/02/2017 Sodium 130 mmol/L Low 133-145 Potassium 3.8 mmol/L 3.5-5.0 Chloride 98 mmol/L Low 101-111 Co2 Carbon Dioxide 28 mmol/L 22-32 Anion Gap 4 mmol/L 2-11 Glucose 104 mg/dL High 70-100 Blood Urea Nitrogen 25 mg/dL High 6-24 Creatinine 0.54 mg/dL 0.51-0.95 BUN/Creatinine Ratio 46.3 High 8-20 Calcium 9.0 mg/dL 8.6-10.3 Total Protein 6.3 g/dL Low 6.4-8.9 Albumin 2.8 g/dL Low 3.2-5.2 Globulin 3.5 g/dL 2-4 Albumin/Globulin Ratio 0.8 Low 1-3 Total Bilirubin 0.30 mg/dL 0.2-1.0 Alkaline Phosphatase 82 U/L 34-104 Alt 11 U/L 7-52 Ast 16 U/L 13-39 Egfr Non- 111.6 >60 Egfr 143.5 >60 3 Laboratory test finding 12/02/2017 Prealbumin 11 mg/dL Low 18-38 C Reactive Protein 89.00 mg/L High < 5.00 4 CBC Auto Diff 12/02/2017 White Blood Count 3.9 10^3/uL 3.5-10.8 Red Blood Count 3.45 10^6/uL Low 4.0-5.4 Hemoglobin 9.4 g/dL Low 12.0-16.0 Hematocrit 28 % Low 35-47 Mean Corpuscular Volume 82 fL 80-97 Mean Corpuscular Hemoglobin 27 pg 27-31 Mean Corpuscular HGB Conc 33 g/dL 31-36 Red Cell Distribution Width 19 % High 10.5-15 Platelet Count 199 10^3/uL 150-450 Mean Platelet Volume 7 um3 Low 7.4-10.4 Abs Neutrophils 2.7 10^3/uL 1.5-7.7 Abs Lymphocytes 0.8 10^3/uL Low 1.0-4.8 Abs Monocytes 0.4 10^3/uL 0-0.8 Abs Eosinophils 0.1 10^3/uL 0-0.6 Abs Basophils 0 10^3/uL 0-0.2 Abs Nucleated RBC 0 10^3/uL Granulocyte % 68.5 % 38-83 Lymphocyte % 20.1 % Low 25-47 Monocyte % 9.2 % High 1-9 Eosinophil % 1.7 % 0-6 Basophil % 0.5 % 0-2 Nucleated Red Blood Cells % 0 CBC Auto Diff 11/04/2017 White Blood Count 5.7 10^3/uL 3.5-10.8 5 Red Blood Count 3.63 10^6/uL Low 4.0-5.4 5 Hemoglobin 9.9 g/dL Low 12.0-16.0 5 Hematocrit 30 % Low 35-47 5 Mean Corpuscular Volume 84 fL 80-97 5 Mean Corpuscular Hemoglobin 27 pg 27-31 5 Mean Corpuscular HGB Conc 33 g/dL 31-36 5 Red Cell Distribution Width 19 % High 10.5-15 5 Platelet Count 261 10^3/uL 150-450 5 Mean Platelet Volume 7 um3 Low 7.4-10.4 5 Abs Neutrophils 4.1 10^3/uL 1.5-7.7 5 Abs Lymphocytes 0.8 10^3/uL Low 1.0-4.8 5 Abs Monocytes 0.6 10^3/uL 0-0.8 5 Abs Eosinophils 0.1 10^3/uL 0-0.6 5 Abs Basophils 0.1 10^3/uL 0-0.2 5 Abs Nucleated RBC 0 10^3/uL 5 Granulocyte % 72.0 % 38-83 5 Lymphocyte % 13.8 % Low 25-47 5 Monocyte % 11.3 % High 1-9 5 Eosinophil % 1.7 % 0-6 5 Basophil % 1.2 % 0-2 5 Nucleated Red Blood Cells % 0.2 5 Comp Metabolic Panel 11/04/2017 Sodium 129 mmol/L Low 133-145 5 Potassium 3.9 mmol/L 3.5-5.0 5 Chloride 96 mmol/L Low 101-111 5 Co2 Carbon Dioxide 29 mmol/L 22-32 5 Anion Gap 4 mmol/L 2-11 5 Glucose 98 mg/dL 70-100 5 Blood Urea Nitrogen 22 mg/dL 6-24 5 Creatinine 0.49 mg/dL Low 0.51-0.95 5 BUN/Creatinine Ratio 44.9 High 8-20 5 Calcium 9.2 mg/dL 8.6-10.3 5 Total Protein 6.2 g/dL Low 6.4-8.9 5 Albumin 2.7 g/dL Low 3.2-5.2 5 Globulin 3.5 g/dL 2-4 5 Albumin/Globulin Ratio 0.8 Low 1-3 5 Total Bilirubin 0.30 mg/dL 0.2-1.0 5 Alkaline Phosphatase 74 U/L 34-104 5 Alt 10 U/L 7-52 5 Ast 19 U/L 13-39 5 Egfr Non- 124.9 >60 5 Egfr 160.6 >60 5, 6 Laboratory test finding 11/04/2017 C Reactive Protein 86.38 mg/L High < 5.00 5, 7 Procalcitonin 0.1 ng/mL <0.6 5, 8 Prealbumin 11 mg/dL Low 18-38 5, 9 1 F/U 2 SEE RESULTS BELOW [id number] EPIFIX 3.5 MESH TRANSFUSED 06/18/18 0917 3 Because ethnic data is not always readily available, this report includes an eGFR for both -Americans and non- Americans. The National Kidney Disease Education Program (NKDEP) does not endorse the use of the MDRD equation for patients that are not between the ages of 18 and 70, are , have extremes of body size, muscle mass, or nutritional status, or are non- or non-. According to the National Kidney Foundation, irrespective of diagnosis, the stage of the disease is based on the level of kidney function: Stage Description GFR(mL/min/1.73 m(2)) 1 Kidney damage with normal or decreased GFR 90 2 Kidney damage with mild decrease in GFR 60-89 3 Moderate decrease in GFR 30-59 4 Severe decrease in GFR 15-29 5 Kidney failure <15 (or dialysis) 4 Acute inflammation: >10.00 5 [id number] 6 Because ethnic data is not always readily available, this report includes an eGFR for both -Americans and non- Americans. The National Kidney Disease Education Program (NKDEP) does not endorse the use of the MDRD equation for patients that are not between the ages of 18 and 70, are , have extremes of body size, muscle mass, or nutritional status, or are non- or non-. According to the National Kidney Foundation, irrespective of diagnosis, the stage of the disease is based on the level of kidney function: Stage Description GFR(mL/min/1.73 m(2)) 1 Kidney damage with normal or decreased GFR 90 2 Kidney damage with mild decrease in GFR 60-89 3 Moderate decrease in GFR 30-59 4 Severe decrease in GFR 15-29 5 Kidney failure <15 (or dialysis) 7 Acute inflammation: >10.00 8 Interpretive information available on [email or web address] Test Catalog at [email or web address] 9 [id number] Procedures Date CPT Code Description Status 06/18/2018 40630 Application Skin Substitute Graft Trunk,Arms Lets Up To Completed 100 SQ CM 06/11/2018 21315 Debridement Skin,& sq Tissue Completed 05/28/2018 07585 Removal Devitalization Tissue Wound Less Than Equal 20 Completed Square CM 03/19/2018 49305 Debridement Skin,& sq Tissue Completed 01/01/2018 91963 Debridement Tissue/Muscle/Bone Completed Encounters Type Date Location Provider CPT E/M Dx Office Visit 06/25/2018 11:15a [facility] [place] [address] L89.154 [facility] [place] G[place] E43 Z74.01 Office Visit 04/30/2018 11:00a [place] [place] [address] L89.154 [facility] [place] G35 E43 Z74.01 Office Visit 02/19/2018 11:00a [place] [place] [address] L89.154 [facility] [place] G35 E43 Z74.01 Office Visit 01/15/2018 11:15a [place] [place] [address] L89.154 [facility] [place] G35 E43 Z74.01 Office Visit 01/15/2018 10:50a [facility] J Carlos Morris 29428 L89.154 Infect[facility] Raúl Jesus L89.150 Office Visit 2017 11:15a [facility] [place] [address] L89.154 [facility] [place] G35 E43 Z74.01 Office Visit 11/27/2017 10:30a [facility] [place] [address] L89.154 [facility] [place] G35 E43 Z74.01 Office Visit 11/20/2017 11:00a [facility] [place] [address] L89.154 [facility] [place] G35 E43 Z74.01 Office Visit 11/13/2017 9:30a [facility] [place] [address] L89.154 [facility] [place] G35 E43 Z74.01 Office Visit 10/23/2017 7:00a [facility] [place] [address] L89.324 Cathodic Protection Technician M86.28 Office Visit 10/22/2017 1:49p [facility] J Carlos Morris [address] L89.309 Infectious Diseases Raúl Jesus M86.68 G35 R64 Office Visit 10/19/2017 12:45p [facility] J Carlos Morris 23632 L89.304 Infectious Diseases Raúl Jesus M86.18 G35 R64 Office Visit 10/18/2017 7:00a [facility], [address] L89.324 Vinicius COOLEY Office Visit 10/16/2017 8:25a [facility] Rafael Black 41561 E87.1 Justyna Griffin R64 Office Visit 10/16/2017 7:00a [facility] [place] [address] L89.159 Cathodic Protection Technician L89.309 Plan of Care Future Appointment(s):08/04/2018 2:00 pm - [facility]
--- OUTSIDE RECORDS SUMMARY | 2018-07-20 17:56 | XMS REPORT | Continuity of Care Document ---
:1945 External Reference #:[id number] Author Name Fred Petty M.D. Address [address] [place] [place] [address] Care Team Providers Name Role Phone Diana Jordan M.D. Primary Care Physician Unavailable Payers Type Date Identification Numbers Payment Provider Subscriber Policy Number: [id number] Medicare - [facility] Jyotsna Allen PayID: [id number] [address] [place] [address] Policy Number: [id number] [facility] Jyotsna Allen PayID: [id number] [address] [place] [address] Advance Directives Description No Information Available Problems Date Description Provider Status Onset: Chronic kidney disease Active Onset: Multiple sclerosis Active Onset: Pressure ulcer of sacral region Active Onset: Vitamin D deficiency Active Onset: Proteinuria Active Onset: Osteoporosis Active Family History Date Family Member(s) Problem(s) Comments Father Parkinson's Disease Mother Cancer Social History Type Date Description Comments Sex Unknown Marital Status Legal Status: Occupation [employer] Work Status Retired ETOH Use Denies alcohol use Tobacco Use Start: Unknown Patient has never smoked Smoking Status Reviewed: 07/06/18 Patient has never smoked Allergies, Adverse Reactions, Alerts Date Description Reaction Status Severity Comments 07/06/2018 Ditropan Active Medications Medication Date Status Form Strength Qnty SIG Indications Ordering Provider Glucosamine Active Tablets 240mg Takes 2 Unknown Chondroitin 000 tablets MSM Double per day Strength Vitamin K2 Active Capsules 100mcg Unknown 000 Iron Active Tablets 28mg Unknown 000 Coq10 Active Capsules 400mg Unknown 000 L-Carnitine Active Capsules 500mg Unknown 000 Alpha-Lipoic Active Capsules 200mg Unknown Acid 000 Turmeric Active Capsules 1000mg Unknown Curcumin [address] Oil Active Capsules DR 1000mg 1 by Unknown 000 mouth every day B12 Folate Active Capsules 800-800mcg Unknown 000 Vitamin D3 Active Tablets Unknown Complete 000 Magnesium Active Tablets 1250(141.7 Unknown Malate 000 mg) mg Succinic Acid Active Crystals Unknown 000 Vitamin C Active Capsules 500mg 1 by Unknown 000 mouth every day Niacin Active Tablets 100mg Unknown 000 Selenium Active Tablets 200mcg Unknown 000 Zinc Gluconate Active Tablets 50mg Unknown 000 HM Vitamin B6 Active Tablets 50mg Unknown 000 Vitamin E-400 Active Capsules 400Unit Unknown 000 Immunizations Description No Information Available Vital Signs Description No Information Available Results Description No Information Available Procedures Description No Information Available Encounters Description No Information Available Plan of Treatment 07/06/2018 - Fred Petty M.D.H25.13 Age-related nuclear cataract, bilateralComments:Smoking can increase the risk of developing or worsening any eye related disease, as well as affect your overall health. If you are a smoker , we strongly recommend that you quit.If you are not a smoker, we strongly recommend that you do not start. You have been diagnosed with cataracts. If you are happy with your vision as it is now, then we will see you at your next scheduled appointment. If you feel like your vision is getting worse before your scheduled appointment, please call Elvia Lui at [phone].Follow up:2 Year Follow Up DFE You can expect to have your eyes dilated at your next visit. If Dr. Petty orders any additional testing, it may require extra time. We recommend that you bring sunglasses, as dilation drops often make you light sensitive until they wear off. We always recommend you bring someone to drive you home if you are uncomfortable driving with your eyes dilated. If you have any questions before your next visit, feel free to call our office at .G35 Multiple [id number] PresbyopiaComments:You have presbyopia. This is when the lens in your eye loses the ability to change focus, and happens as we age. A pair of reading glasses will help you see up close.
[2018-07-20] MEDS ORDERED: oxyCODONE/Acetamin 5/325 MG* TAB PO PRN (18:00)
[2018-07-20] MEDS ORDERED: diPHENhydraMINE IV* 50 MG/ML 1 ml VIAL (BENADRYL) IV PRN (18:00)
[2018-07-20] MEDS ORDERED: Acetaminophen TAB* 325 MG PO PRN (18:00)
[2018-07-20] MEDS ORDERED: Ondansetron INJ* 2 MG/ML VIAL IV PRN (18:00)
[2018-07-20 19:08] LABS: Hematocrit 28 % (35-47); Mean Corpuscular HGB Conc 32 g/dl (31-36); Mean Corpuscular Hemoglobin 26 pg (27-31); Mean Corpuscular Volume 82 fL (80-97); Mean Platelet Volume 7.3 um3 (7.4-10.4); Platelet Count 160 10^3/ul (150-450); Red Blood Count 3.42 10^6/ul (4.00-5.40); Red Cell Distribution Width 21 % (10.5-15); White Blood Count 9.8 10^3/ul (3.5-10.8)
[2018-07-20 19:10] LABS: ABS Basophils 0.1 10^3/ul (0-0.2); ABS Eosinophils 0 10^3/ul (0-0.6); ABS Lymphocytes 0.6 10^3/ul (1.0-4.8); ABS Monocytes 0.7 10^3/ul (0-0.8); ABS Neutrophils 8.4 10^3/ul (1.5-7.7); ABS Nucleated RBC 0 10^3/ul; Eosinophil % 0.2 % (0-6); Lymphocyte % 6.5 % (25-47); Nucleated Red Blood Cells % 0.1
[2018-07-20 19:15] LABS: INR 0.92 (0.77-1.02)
[2018-07-20 19:24] LABS: EGFR Non-African American 124.5 (>60)
--- NOTE | 2018-07-20 20:22 | HP ---
H&P (Free Text) History and Physical: HISTORY & PHYSICAL HISTORY: The patient is a 72-year-old woman, with multiple sclerosis, wheelchair bound, who cannot even stand for transfers, with a decrease sensation bilateral lower extremities, who presented to my clinic today after an injury to the left thigh two days ago on July 18, 2018. The patient and her consulted her primary care physician, Dr. Jordan who referred the patient to Dr. Camacho's clinic. Dr. Camacho then referred the patient to me. The patient has used a wheelchair in some capacity since 1979. She has been wheelchair bound for at least 10 years. Up until 2016, the patient could stand with transfers. Now the patient cannot even stand with transfers. The patient is doted on by her . He spends three hours feeding her dinner each night. The patient has a history of multiple fractures of the lower extremities treated non-operatively. The patient's provided most of the history, although the patient occasionally interjected. At 9:15 in the morning on July 18, the patient was being transferred from a mini pickup truck to her wheelchair. There was sudden audible and palpable crunch in the left thigh. Since then the patient's and the patient had noticed some swelling about the left thigh. The patient had not complained of pain. The patient and her had noted some angular deformity of the left thigh. The patient had breakfast at 9:00 a.m. today. The patient has a history of right femur fracture in the distant past, prior to 2002, but the patient's did not know the year. The patient has also apparently had ankle fractures in the past treated nonoperatively. I did not see any prior right femur films in our PACS system going back as far as 2002. I did find some ankle x-rays from August, which showed a nondisplaced right distal tibia fracture. The tibia was very osteopenic in those films. That injury was managed nonoperatively according to the patient's . PAST MEDICAL HISTORY: Multiple sclerosis. The patient apparently had hypertension in the past controlled with lisinopril, but is no longer on any medications for blood pressure. Decubitus ulcers x2, persistent. The patient has been seen by Dr. Aneesh Calabrese[facility]. He is concerned about their ability to heal. Possible history of anemia and chronic kidney disease. The patient has had multiple urinary tract infections and has become septic as a result of them. PAST SURGICAL HISTORY: Hysterectomy, colostomy, urostomy. CURRENT MEDICATIONS: Multiple vitamins including vitamin C, vitamin E, vitamin B12, iron, glucosamine chondroitin, sulfate, fish oil, niacin, vitamin B6, magnesium, malate, succinic acid, lipoic acid. ALLERGIES: No known drug allergies. SOCIAL HISTORY: The patient lives with her . She has never smoked. She is disabled. She is wheelchair bound and cannot even stand for transfers. The patient eats a gluten free, low dairy, low sugar diet. FAMILY HISTORY: The patient's mother had cancer and patient's father had Parkinson's disease. ROS: The patient describes no pain left thigh. The patient describes decreased sensation throughout the lower extremities. No current fevers, sweats or chills. No chest pain or shortness of breath. Decreased sensation of upper extremities as well. PHYSICAL EXAM: VITAL SIGNS: Height 68" and weight 80 lbs. for a BMI of 12.2. Temperature 96.4 degrees Farenheit, blood pressure 100/58, pulse 86 and respiration is 18. GENERAL: No acute distress. Appropriate mood and affect. Appropriate dress and hygiene. The patient is quite thin. Very thin upper and lower extremities. CARDIAC: Regular rate and rhythm, no murmurs RESPIRATORY: Clear to auscultation bilaterally LEFT LOWER EXTREMITY: Examination of the patient's left lower extremity reveals soft tissue swelling about the distal thigh. There is no clear tenting of the skin. However, there is some clear deformity of the distal thigh, some clear valgus angulation and anterior apex angulation. With palpation of the fracture site, the patient has some mild pain and there is crepitus. STUDIES: Imaging: X-rays of the left femur show a displaced, comminuted distal femoral shaft fracture. I measured 50 degrees of apex anterior angulation and 40 degrees of medial apex or valgus angulation. The bone is exceedingly thin, osteopenic, throughout, all bones that are visualized are. This was from five x- ray views of the left femur. The patient also had x-rays of obtained of the left hip, three views. There is no clear hip fracture. The patient appears to have some adduction deformity of that left hip which may be secondary to positioning. There is some irregularity to the appearance of the femoral neck, possibly consistent with a prior intertrochanteric or femoral neck fracture, healed. ASSESSMENT: 1. Left distal femur fracture, displaced, comminuted, shortened. 2. Multiple sclerosis with advanced neuropathy and significant decrease in sensation lower extremities. 3. Severe osteopenia lower extremities including left femur. PLAN: 1. I spoke to the patient and her extensively about the difficulty involved with treating this fracture. 2. Were this fracture present in someone with bone of normal density and in someone with full sensation intact, the injury is relatively straight forward in its treatment algorithm. It would clearly need open reduction internal fixation, likely with an intramedullary nail, but possibly with a plate and screws. 3. Osteopenia makes the effectiveness of the fixation somewhat limited, but this detriment or handicap is mostly avoided by the use of an intramedullary nail. 4. More concerning to me is the patient's relatively insensate lower extremity , and the heightened risk of an infection because of this. For this reason, generally patients who are of decreased sensation and certainly those with decreased sensation and decreased bone density are typically treated non- operatively. However, given the magnitude of the deformity of this fracture, with 50 degrees of apex deformity, I think that there would be a strong likelihood of additional shortened and deformity and for this closed fracture to become an open fracture. With the patient's known difficulty of healing wounds and difficulty in fighting infections, an open fracture would be catastrophic. For these reasons, I do recommend surgery now. 5. I recommended to the operating room for an open reduction internal fixation with an intramedullary nail, retrograde. 6. I spoke with the patient's primary care physician, Dr. Diana Jordan. She agreed to do a preoperative visit, optimization clearance note in the morning of July 21. 7. I will admit this patient this evening to [facility]. I will obtain preoperative labs, EKG, chest x-ray. The patient will be NPO after midnight and our tentative plan will be for surgery in the late afternoon on July 21. We will obtain pain control and keep the patient supine to prevent additional deformity at the fracture site. 8. I spoke the patient and her about the primary concerns given the multiple sclerosis and neuropathy- of possible complications including infection and failure of hardware. I will discuss the rest of the more standard potential risks and complications of surgery when I consent the patient for surgery tomorrow.
[2018-07-20] MEDS: NS 0.9% 1000 ML* 1,000 ML IV SCH (20:47)
[2018-07-21 07:01] LABS: Hematocrit 22 % (35-47); Hemoglobin 7.1 g/dl (12.0-16.0); Mean Corpuscular HGB Conc 33 g/dl (31-36); Mean Corpuscular Hemoglobin 27 pg (27-31); Mean Corpuscular Volume 81 fL (80-97); Mean Platelet Volume 7.3 um3 (7.4-10.4); Platelet Count 137 10^3/ul (150-450); Red Blood Count 2.67 10^6/ul (4.00-5.40); Red Cell Distribution Width 21 % (10.5-15); White Blood Count 5.5 10^3/ul (3.5-10.8)
[2018-07-21 07:27] LABS: EGFR Non-African American 157.3 (>60)
--- NOTE | 2018-07-21 08:03 | RAD ---
Indication: Preop left femur fracture. Single frontal view of the chest performed at 1846 hours was reviewed. Comparison is made with previous exam dated July 20, 2017. Hyperinflated lung mera are noted. Heart is mildly enlarged. No alveolar consolidation is noted. No significant change is noted since July 20, 2017. IMPRESSION: HYPERINFLATED LUNG MERA WITH NO DEFINITE EVIDENCE OF PNEUMONIA. R1
[2018-07-21] MEDS: NS 0.9% 1000 ML* 1,000 ML IV SCH ×2 (09:56→22:33)
--- NOTE | 2018-07-21 10:35 | PN ---
Progress Note - Progress Note Date of Service: 07/21/18 SOAP: Subjective: No pain. Patient seen by Dr. Jordan, her PCP, and cleared/optimized for surgery. Admitted last night by me from my clinic. Objective: LLE: - swelling distal thigh - no tenting skin - some angular deformity - decreased, but present sensation to light touch LLE including foot\ - DP, PT pulses 2+ intact in foot , CR < 2 sec Selected Entries 07/21/18 07/21/18 03:41 07:41 Temperature 98.2 F Pulse Rate 79 Respiratory 16 Rate Blood Pressure 113/55 (mmHg) O2 Sat by Pulse 98 Oximetry Laboratory Tests 07/20/18 07/20/18 07/21/18 19:02 19:02 06:48 WBC 5.5 Hct 28 L 22 L Sodium 126 L Creatinine 0.49 L 07/21/18 06:48 WBC Hct Sodium 129 L Creatinine 0.40 L Assessment: L distal femur fracture, displaced, comminuted, subacute (3 days from injury) Severe osteopenia Multiple sclerosis, non-ambulatory Plan: - Hct dropped from 28 to 22 overnight. Not hemodilutional as IVF started this AM. Dr. Jordan has already ordered 2 u PRBC, with which I agree - Dr. Jordan verbally indicated patient cleared/optimized for surgery - I considered long leg splint, but I just wrote order for nursing to do leg checks q 2 hours to make sure patient is not positioned with thigh in much angular deformity - to OR, ORIF left femur retrograde nail this afternoon - NPO - Patient will need paralysis intraop to facilitate reduction of fracture that is shortened and has been present for 3 days now - IVF - No anticoagulation as surgery today - Per report, patient's is resistant to postop anticoagulation, but I will encourage it (Lovenox).
--- NOTE | 2018-07-21 12:25 | CONS ---
CC: Dr. Garza CONSULTATION REPORT: DATE OF CONSULT: HISTORY OF PRESENT ILLNESS: Jyotsna Allen is a 72-year-old woman well known to me, admitted yesterday with a left femur fracture. The patient has multiple sclerosis. She was being transferred into a truck by her on 07/18/18. Her leg caught and her heard a crunching in the left thigh. She denied pain, but there was swelling and the leg was clearly deformed. The patient called me the following day. I arranged for orthopedic followup on 07/20/18. She was seen in the orthopedic clinic and admitted to the hospital with a left femur fracture. PAST MEDICAL HISTORY: Significant for the following medical problems. 1. Multiple sclerosis since age 21. The patient is nonambulatory with gradually worsening function over the years. She is either in bed or in a wheelchair. She has had marked spasticity of her lower extremities. 2. Recurrent decubitus ulcers of the buttocks and hips with current one present 10 months which has been gradually getting smaller and for which she has been followed in the wound clinic. 3. Known kidney stone, which has been felt to be too large to remove. 4. History of sepsis due to Staph aureus non-MRSA in 2004. 5. Osteoporosis with previous fracture in the right thigh. 6. CKD, which has been stable. 7. Previous history of hypertension, for which she was on lisinopril but blood pressure had been more normal recently and so, lisinopril had been stopped. 8. Weight loss and malnutrition. She is very slow in eating. She has been working with Dr. Dorys Torre on this. This is actually somewhat improved with improved prealbumin recently. 9. 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 This is done by Interventional Radiology. 10. Prior injuries include fracture right distal fibula, left distal fibula, right femur. PAST SURGICAL HISTORY: Includes: 1. Sigmoid loop colostomy. 2. Creation of ileal conduit. 3. Hysterectomy. 4. BSO. 5. Appendectomy. 6. Small bowel obstruction leading to lysis of adhesions in 1999. CURRENT MEDICATIONS: Mostly supplements. 1. She did take a recent course of ciprofloxacin for urinary tract infection with sludge in her urine, which cleared up with use of ciprofloxacin. 2. Zinc 50 mg daily. 3. Vitamin C 500 mg 2 every day. 4. Vitamin D 2000 units 1 capsule every day. 5. Fish oil 1000 mg daily. 6. L-carnitine 500 mg daily. 7. Alpha-lipoic acid 300 mg daily. 8. Magnesium malate 417 g of powder daily. 9. Coenzyme Q10 of 400 mg daily. 10. Succinic acid 250 mg every day. 11. Vitamin K2 of 40 mcg every day. 12. Probiotic 2 billion cells daily. 13. Selenium 200 mcg daily. 14. Ferrous gluconate 27 mg every other day. 15. Folic acid 800 mcg every day. 16. B12 of 500 mcg every day. 17. Niacinamide 125 mg every day. 18. Vitamin E 400 units every day. 19. B6 of 50 mg daily. ALLERGIES: ADHESIVE TAPE, TREE NUTS, SALMON OIL? IODINATED CONTRAST, CHOCOLATE FLAVORED TURKEY and DAFFODILS. FAMILY HISTORY: Mother of bladder cancer at age 76. She had a history of breast cancer. Two maternal aunts have had bladder cancer. Father had Parkinson's disease in his 70s, at age 80. One sister while being treated for metastatic bile duct cancer, another sister is alive and well. HABITS: Tobacco none. ETOH none. 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 She is . She lives in her own home. She is cared for by her . REVIEW OF SYSTEMS: Generally she had been feeling somewhat better recently. Her appetite, see above. It takes her many many hours to eat each meal. She denies fevers, chills, or sweats. She sleeps a lot. Skin: See above. HEENT: Negative nodes, negative heme. She has had anemia. Endocrine: Negative. Respiratory: Negative. Cardiovascular: See above. GI: See above. : See above. STAGE DIRECTOR: Menopausal, see above. Musculoskeletal: See above. Neuro: See above. Psychiatric: Negative. PHYSICAL EXAMINATION: General: She is a thin, cachetic appearing white female lying on the bed in no acute distress. The patient rates her pain as 1/10 at this point. She was seen alone. Her was contacted via phone. Her speech is slurred. She is in no acute distress. Vital Signs: Blood pressure 98/55, pulse 79, respirations 16, temperature 98.2, O2 sat 98%. She is a thin appearing woman in no acute distress. Skin is warm and dry. She has dressings over her buttocks. Mouth: Pharynx unremarkable. Neck: Supple. Chest: Clear. Heart: Normal S1, S2. There are no murmurs, gallops or rubs. Abdomen : Mildly distended, soft. There is no tenderness. There is an ileal conduit bag on the right. There is colostomy bag on the left with liquid brown stool. Bowel sounds are present. Extremities: Show muscle atrophy in the upper and lower extremities. Her left thigh is swollen. There is valgus angulation. Neurologic: The patient is paraplegic. Her upper extremities are also weak. DIAGNOSTIC STUDIES/LAB DATA: CBC: WBC 5.5, H and H 7.1/, MCV 81, PLT 137, 00. Her H and H has fallen from 07/09 yesterday. Her baseline prior to yesterday was a hematocrit of about 31 to 33. INR was 0.92. Chemistry: Sodium 129, potassium 4.3, chloride 102, CO2 of 23, BUN and creatinine 26/0.4, glucose 104, calcium 8.5. Chest x-ray shows no acute disease. X-ray of the left femur shows a displaced, angulated fracture. IMPRESSION: The patient with left distal femur fracture in the setting of multiple sclerosis. She has severe osteoporosis. I have discussed the case with Dr. Garza. He will be taking her to surgery today. There are no contraindications to surgery as planned after she is transfused. She will get perioperative antibiotic prophylaxis. The benefits of surgery outweigh the risks. With regards to anemia, we will transfuse. DVT prophylaxis discussed with . She has no different mobility from her usual at home, but she could have increased risk of deep venous thrombosis due to surgery. Her is considering whether or not he wants to do this, willing to consider it. Code status: The patient is a full code. Wound on buttocks: To continue current treatment for that per the wound clinic. [id number]/[facility] #: [id number] MTDD
[2018-07-21] MEDS ORDERED: fentaNYL* 50 MCG/ML 2 ML VIAL (100 MCG VIAL) ONE (15:44)
[2018-07-21] MEDS ORDERED: KETAMINE HCL* 50 MG/ML 10 ML VIAL ONE (15:44)
[2018-07-21] MEDS ORDERED: Dexamethasone IV* 4 MG/ML 1 ML (4 MG) ONE (15:45)
[2018-07-21] MEDS ORDERED: Succinylcholine* 20 MG/ML 10 ML VIAL ONE (15:45)
[2018-07-21] MEDS ORDERED: Ketorolac INJ* 30 MG/ML 1 ML VIAL ONE (15:45)
[2018-07-21] MEDS ORDERED: Ondansetron INJ* 2 MG/ML VIAL ONE (15:45)
[2018-07-21] MEDS ORDERED: Propofol* 10 MG/ML 20 ML BTL IV PUSH ONE (15:45)
[2018-07-21] MEDS ORDERED: Midazolam* 1 MG/ML 2 ML VIAL (2 MG) ONE (15:45)
[2018-07-21] MEDS ORDERED: DiMENhydriNATE IV* 50 MG/ML VIAL ONE (15:45)
[2018-07-21] MEDS ORDERED: Lidocaine 2% PF * 5 ML VIAL ONE (15:46)
[2018-07-21] MEDS ORDERED: ceFAZolin 2 GM PREMIX in ORs 2 GM/50 ML BAG IVPB ONE (16:36)
[2018-07-21] MEDS ORDERED: Phenylephrine INJ* 10 MG/ML 1 ML VIAL (10 MG) ONE (19:37)
[2018-07-21] MEDS ORDERED: HYDROmorphone INJ1* 1 MG/ML SYRINGE IV PRN (20:12)
[2018-07-21] MEDS ORDERED: Acetaminophen IV 1GM/100ML * 10 MG/ML VIAL IVPB ONE (20:12)
[2018-07-21] MEDS ORDERED: Naloxone* 0.4 MG/ML 1 ML VIAL IV PRN (20:12)
[2018-07-21] MEDS ORDERED: Acetaminophen IV 1GM/100ML * 100 ML ONE (21:00)
[2018-07-21] MEDS ORDERED: Midazolam* 1 MG/ML 5 ML VIAL (5 MG) ONE (21:00)
[2018-07-22] MEDS: [UNRECOGNIZED DRUG - OTHER] IVPB SCH ×3 (02:11→17:31)
[2018-07-22 06:13] LABS: EGFR Non-African American 121.6 (>60)
[2018-07-22 07:43] LABS: Hematocrit 29 % (35-47); Mean Corpuscular HGB Conc 34 g/dl (31-36); Mean Corpuscular Hemoglobin 28 pg (27-31); Mean Corpuscular Volume 83 fL (80-97); Red Blood Count 3.53 10^6/ul (4.00-5.40); Red Cell Distribution Width 18 % (10.5-15); White Blood Count 9.9 10^3/ul (3.5-10.8)
--- NOTE | 2018-07-22 13:20 | PN ---
Progress Note - Progress Note Date of Service: 07/22/18 SOAP: Subjective: []patient seen and examined at bedside. She is feeling well without chest pain, shortness of breath or dizziness. Her LLE pain is well controlled. Objective: []General: Eating breakfast, NAD LLE: Immobilizer in place. Dressings remain CDI. Sensation intact distally. DF/ PF intact. Dp2+ BL calves without erythema, edema or palpable cords Assessment: []POD 1 sp ORIF left femur retrograde nail Plan: []NWB, immobilizer No dressing change for 7 days PT/OT Lovenox DVT prophylaxis Awaiting femur xray which has not yet been done Vital Signs Temp 98.5 F 07/22/18 11:51 Pulse 96 07/22/18 11:51 Resp 17 07/22/18 11:51 BP 138/44 07/22/18 11:51 Pulse Ox 100 07/22/18 11:51 Intake & Output 07/21/18 07/22/18 07/22/18 18:59 06:59 18:59 Intake Total 986 1600 1031 Output Total 75 775 Balance 818 948 2695 Intake: IV Fluids 986 1000 1031 ABX - CEFAZOLIN 50 NS 986 981 lr 1000 Oral 0 0 Packed Cells 600 Output: Ureteral #1 50 Urostomy 75 325 Colostomy 0 0 Estimated Blood Loss 400 Other: Estimated Stool Amount Small Laboratory Last Values WBC 9.9 10^3/ul (3.5-10.8) 07/22/18 05:21 RBC 3.53 10^6/ul (4.00-5.40) L 07/22/18 05:21 Hgb 10.0 g/dl (12.0-16.0) L 07/22/18 05:21 Hct 29 % (35-47) L 07/22/18 05:21 MCV 83 fL (80-97) 07/22/18 05:21 MCH 28 pg (27-31) 07/22/18 05:21 MCHC 34 g/dl (31-36) 07/22/18 05:21 RDW 18 % (10.5-15) H 07/22/18 05:21 Plt Count 10^3/ul (150-450) 07/22/18 05:21 MPV Not Reportable 07/22/18 05:21 Neut % (Auto) 85.4 % (38-83) H 07/20/18 19:02 Lymph % (Auto) 6.5 % (25-47) L 07/20/18 19:02 [place] % (Auto) 7.3 % (0-7) H 07/20/18 19:02 Eos % (Auto) 0.2 % (0-6) 07/20/18 19:02 Baso % (Auto) 0.6 % (0-2) 07/20/18 19:02 Absolute Neuts (auto) 8.4 10^3/ul (1.5-7.7) H 07/20/18 19:02 Absolute Lymphs (auto) 0.6 10^3/ul (1.0-4.8) L 07/20/18 19:02 Absolute Monos (auto) 0.7 10^3/ul (0-0.8) 07/20/18 19:02 Absolute Eos (auto) 0 10^3/ul (0-0.6) 07/20/18 19:02 Absolute Basos (auto) 0.1 10^3/ul (0-0.2) 07/20/18 19:02 Absolute Nucleated RBC 0 10^3/ul 07/20/18 19:02 Nucleated RBC % 0.1 07/20/18 19:02 INR (Anticoag Therapy) 0.92 (0.77-1.02) 07/20/18 19:02 Sodium 133 mmol/L (135-145) L 07/22/18 05:21 Potassium 4.7 mmol/L (3.5-5.0) 07/22/18 05:21 Chloride 107 mmol/L (101-111) 07/22/18 05:21 Carbon Dioxide 20 mmol/L (22-32) L 07/22/18 05:21 Anion Gap 6 mmol/L (2-11) 07/22/18 05:21 BUN 24 mg/dL (6-24) 07/22/18 05:21 Creatinine 0.50 mg/dL (0.51-0.95) L 07/22/18 05:21 Est GFR ( Amer) 147.2 (>60) 07/22/18 05:21 Est GFR (Non-Af Amer) 121.6 (>60) 07/22/18 05:21 BUN/Creatinine Ratio 48.0 (8-20) H 07/22/18 05:21 Glucose 180 mg/dL (70-100) H 07/22/18 05:21 Calcium 8.3 mg/dL (8.6-10.3) L 07/22/18 05:21 Blood Type O Positive 07/21/18 06:48 Antibody Screen Negative 07/21/18 06:48 Crossmatch See Detail 07/21/18 06:48
--- NOTE | 2018-07-22 15:04 | RAD ---
HISTORY: postop COMPARISONS: July 20, 2018 VIEWS: 6 , Frontal and lateral views of the left femur FINDINGS: BONE DENSITY: There is diffuse osteopenia. BONES: Again noted is a fracture of the distal femur. There is been interval reduction of angulation. There is been interval internal fixation with intramedullary jesse and distal locking screws. There is no appreciable hardware failure or osteolysis. JOINTS: There is osteoarthritis of the hip and knee. ALIGNMENT: There is no dislocation. SOFT TISSUES: Unremarkable. OTHER FINDINGS: None. IMPRESSION: 1. OSTEOPENIA. 2. STATUS POST INTERNAL FIXATION OF A DISTAL FEMORAL FRACTURE.
--- NOTE | 2018-07-22 15:05 | RAD ---
INDICATION: Femur fracture COMPARISONS: July 20, 2018 TECHNIQUE: Fluoroscopy was provided for a surgical procedure. Total fluoroscopy time is: 136.2 seconds FINDINGS: Spot images demonstrate internal fixation of the femur. IMPRESSION: FLUOROSCOPY WAS PROVIDED FOR A SURGICAL PROCEDURE CPT II Codes: G9500
[2018-07-22] MEDS: Enoxaparin(*) 30 MG/0.3 ML SYR SUBCUT SCH (17:31)
[2018-07-23 06:49] LABS: Hematocrit 23 % (35-47); Hemoglobin 7.7 g/dl (12.0-16.0); Mean Corpuscular HGB Conc 34 g/dl (31-36); Mean Corpuscular Hemoglobin 28 pg (27-31); Mean Corpuscular Volume 83 fL (80-97); Mean Platelet Volume 7.2 um3 (7.4-10.4); Platelet Count 94 10^3/ul (150-450); Red Blood Count 2.76 10^6/ul (4.00-5.40); Red Cell Distribution Width 18 % (10.5-15); White Blood Count 6.3 10^3/ul (3.5-10.8)
[2018-07-23] MEDS: Enoxaparin(*) 30 MG/0.3 ML SYR SUBCUT SCH (18:52)
[2018-07-24 05:33] LABS: Hematocrit 23 % (35-47); Hemoglobin 7.8 g/dl (12.0-16.0); Mean Corpuscular HGB Conc 34 g/dl (31-36); Mean Corpuscular Hemoglobin 28 pg (27-31); Mean Corpuscular Volume 83 fL (80-97); Mean Platelet Volume 7.1 um3 (7.4-10.4); Platelet Count 104 10^3/ul (150-450); Red Blood Count 2.73 10^6/ul (4.00-5.40); Red Cell Distribution Width 18 % (10.5-15); White Blood Count 5.9 10^3/ul (3.5-10.8)
[2018-07-24 05:47] LABS: EGFR Non-African American 203.6 (>60)
--- NOTE | 2018-07-24 10:35 | PN ---
Progress Note - Progress Note Date of Service: 07/24/18 SOAP: Subjective: No complaints. Objective: LLE: - proximal dressing saturated - distal dressing minimal spotting - incisions c/d/i Selected Entries 07/23/18 07/23/18 07/23/18 11:26 15:17 19:18 Temperature 98.2 F 99.1 F 98.7 F Pulse Rate Respiratory Rate Blood Pressure (mmHg) O2 Sat by Pulse Oximetry 07/24/18 07/24/18 01:06 03:08 Temperature 99.3 F 99.2 F Pulse Rate 101 Respiratory 28 Rate Blood Pressure 115/65 (mmHg) O2 Sat by Pulse 99 Oximetry Laboratory Tests 07/23/18 07/23/18 07/24/18 06:19 06:19 04:53 Hct 23 L Sodium 131 L 131 L 07/24/18 04:54 Hct 23 L Sodium Assessment: POD 3 ORIF L distal femur shaft fracture with retrograde IMN MS Severe osteopenia Plan: - Extremely careful dressing change, including use of Chloraprep and Iodine to all dressings. I decided on a dressing change today because the proximal dressing was saturated. - Lovenox - Knee immobilizer for extra support/security - Tentative plan, discussed with Dr. Jordan yesterday and patient today is for discharge home tomorrow morning - Next dressing change should be 7 days from now on 07/31/18 by VNS unless there is any saturation of either dressing. She requires very careful dressing changes because of ostomy, urostomy bags. - Dr. Jordan and I have decided to hold off on additional transfusions. Hct is low, but stable.
[2018-07-24] MEDS: Enoxaparin(*) 30 MG/0.3 ML SYR SUBCUT SCH (18:17)
[2018-07-25 05:51] LABS: Hematocrit 35 % (35-47); Hemoglobin 12.2 g/dl (12.0-16.0); Mean Corpuscular HGB Conc 35 g/dl (31-36); Mean Corpuscular Hemoglobin 29 pg (27-31); Mean Corpuscular Volume 82 fL (80-97); Mean Platelet Volume 6.8 um3 (7.4-10.4); Platelet Count 101 10^3/ul (150-450); Red Blood Count 4.28 10^6/ul (4.00-5.40); Red Cell Distribution Width 16 % (10.5-15); White Blood Count 7.2 10^3/ul (3.5-10.8)
[2018-07-25] MEDS: Cephalexin CAP* 500 MG PO SCH ×2 (09:25→13:20)
--- NOTE | 2018-07-25 11:14 | OP ---
OPERATIVE NOTE: DATE OF OPERATION: 07/21/18 DATE OF : 47 SURGEON: Ino Garza MD TUBE MOLDER FIBERGLASS: ELSA Wolfe A physician psychological assistant was required for the length of the procedure for assistance with positioning, instrumentation, lower extremity manipulation, and closure. ANESTHESIOLOGIST: Evon Chu MD ANESTHESIA: General anesthesia. PRE-OP DIAGNOSES: 1. Left distal femur fracture, femoral shaft, displaced, comminuted, shortened. 2. Multiple sclerosis with advanced neuropathy and nonweightbearing left lower extremity. 3. Severe osteopenia, left femur. POST-OP DIAGNOSES: 1. Left distal femur fracture, femoral shaft, displaced, comminuted, shortened. 2. Multiple sclerosis with advanced neuropathy and nonweightbearing left lower extremity. 3. Severe osteopenia, left femur. OPERATIVE PROCEDURE: Open reduction internal fixation, left distal femoral shaft fracture with retrograde intramedullary nail. ANTIBIOTICS: Ancef 2 g IV. IV FLUIDS: 1000 cc crystalloid, 2 units of packed red blood cells intraoperatively. Of note, the patient also had 2 units of packed red blood cells preoperatively earlier in the day. ESTIMATED BLOOD LOSS: Approximately 400 cc. TOURNIQUET TIME: 28 minutes at 250 mmHg. RJCA-OM-ACGS TIME: 145 minutes. RADIATION EXPOSURE: C-arm for 136 minutes. Paperwork was not entirely easy to read, but I believe it read that exposure was 0.206 milligray meter square. SPECIMENS: None. IMPLANTS: Left femur retrograde nail from [place], T2 SCN. The nail was 14 mm x 360 mm. Locking screws were placed, each 5 mm in width. Four of these screws were placed, 2 distal and 2 proximal. I also placed 5 mm condylar screws and bolts x2 distally. An end cap was also placed at the distal end of the nail. COMPLICATIONS: None. INDICATIONS FOR PROCEDURE: The patient is a 72-year-old woman, with multiple sclerosis, wheelchair bound, who cannot even stand for transfers, with baseline decreased sensation bilateral lower extremities, who presented to my clinic on 07/20/18, having sustained an injury at home 2 days prior on 07/18/18. The patient had been transferred by her and there was a palpable and audible crunch. The patient's noted some swelling about the left thigh. The patient contacted Dr. Diana oJrdan who referred the patient to Dr. Camacho who referred the patient to me. I had the patient to my clinic on 07/20/18 in the afternoon. X-rays demonstrated comminuted, significantly, displaced and shortened and angulated left distal femoral shaft fracture. I measured the angulation to be 50 degrees in 1 plane and 40 degrees in another plane, quite significant. The bone was noted to be incredibly osteopenic and thin with very wide medullary canals. I was concerned about this fracture and its ability to become open from closed, given the significant amount of angulation. I was also concerned about blood loss through the fracture site. For this reason, even though the patient is not weightbearing, I thought that surgery was indicated. I convinced the patient to proceed with her to [facility] to be admitted. They were to obtain blood work on 07/20/18 and to be seen early on in the morning following medical clearance by Dr. Diana Jordan and to have surgery later in the day on 07/21/18. Laboratory values were interesting for hematocrit of 28 on the evening of 07/20/18, but 22 on the morning of 07/21/18. Therefore, 2 units of packed red blood cells were ordered by Dr. Jordan preoperatively and I encouraged that. I discussed risks and potential complications of procedure with the patient and her . These include bleeding, infection, nerve or blood vessel injury, blood clot, failure of hardware, bone re-fracture. The patient opted to go forward with procedure. DESCRIPTION OF PROCEDURE: The patient signed a written consent in preoperative holding. Operative extremity was marked in preoperative holding. The patient was taken back to the operating room and placed supine on the operating room table. General anesthesia was induced. The patient was noted to have ostomy and urostomy bags about the abdomen. The ostomy bag was noted to be very close in proximity to the left hip and the required surgical incision sites for the proximal screws. Therefore, I was very careful to place drapes, even prior to the prep, between the planned surgical field, and the ostomy bag. These nonsterile drapes were first applied and an initial ChloraPrep was then performed about the anterior aspect of the hip and groin and proximal thigh. I continued the patient's positioning. Then we performed a formal prep and then draping of the left lower extremity. Surgical time-out was performed. The left knee was placed over in radiolucent triangle. A sterile tourniquet was placed about the left thigh. The tourniquet was elevated to 250 mmHg after an Esmarch was applied. A midline skin incision anteriorly was made overlying the patellar tendon. I exchanged knifes and dissected down to the paratenon which I released anterior longitudinal. The paratenon was a very poor quality, barely existent. I split the patellar tendon longitudinally anterior. I placed retractors and I was able to feel and actually visualize quite nicely the distal end of the femur. I placed a K-wire into the planned nail exit site, just anterior to the intracondylar notch, under direct visualization. I brought C-arm in and confirmed appropriate location and pin in coronal and sagittal planes. I adjusted the pin once to have the appropriate angulation of the pin. I placed entry reamer and tissue protector and entry reamed the distal femur. I removed instrumentation and I placed a ball tip guidewire. I noted the fracture to be displaced at one of the fracture lines. I considered making an open incision at the fracture site to make this an improved reduction by x-ray. However, given the patient's decreased sensation and so heightened risk of infection, I thought that the fewer incisions the better certainly about the fracture site. Therefore, we performed just a closed reduction at the fracture site. With manipulation and traction, we were able to improve the reduction although not perfectly. We advanced the ball tip guidewire to the proximal femur. We measured an appropriate nail length. I measured this length such that the nail would be distal to the proximal most extent of the lesser trochanter, but not so far proximal that a femoral neck screw to be placed in the future for a future femoral neck fracture as needed; however, unlikely. I next performed femoral reaming. Given how capacious and wide the femoral canal appeared on x-rays, I did not think this would be required, but I did perform reamings up to 16 mm. This assured the widest nail 14 mm in width could be passed. I placed a nail, 14 mm x 360 mm. I then applied my distal fixation. Given the truly significantly osteopenic bone, I chose to use locking bolts x2 distally as well as locking screws. I made appropriate skin incisions to place all of this distal hardware. It should be noted that I countersunk the femoral nail at least 1 cm from the distal opening in the joint to prevent the nail from being prominent. After distal fixation had been placed, I moved proximal. I made skin incisions , based on a perfect [place] technique for the anterior to posterior screws. I then had my physician assist improve slightly the reduction by pulling traction on the lower extremity prior to my drilling and then placing my proximal screws from anterior to posterior. I confirmed the appropriate length with C-arm imaging. I next obtained final films that showed good length of all screws, excellent placement of nail and adequate reduction at the very comminuted distal femoral shaft fracture site. I examined within the knee joint from distal and noted that my nail was very close, several millimeters at the anterior most end of the aperture, hole, from the articular cartilage. Given this patient being nonweightbearing I thought that this was okay. Irrigation of joint. Irrigation of all wounds. The patellar tendon was closed with a running stitch using Vicryl 0 suture. The anterior incisions had their quadriceps muscle closed with [id number] stitches using Vicryl 0 suture. The subcutaneous tissue of all surgical incision sites was closed with buried simple stitches using Vicryl 2-0 suture. I closed all skin incisions with massiel. Dressings were then placed. I was particularly careful proximally where I placed 4x4's followed by multiple Tegaderm to fully seal this off from the ostomy bag adjacent. For the distal incisions, I placed Xeroform, 4x4's, ABD's , and an Keith bandage about the knee. The patient was awakened and extubated and transferred to the PACU and readmitted to my service postoperatively. DISPOSITION: The patient was readmitted to my service postoperatively. She was to be nonweightbearing on the left lower extremity as she was preoperatively and pre-injury. She must receive Ancef 1 g IV q.8 hours x24 hours postoperatively. Was to consider additional oral antibiotics given the patient's certainly increased risk of infection given her ostomy bag and her decreased sensation in the left lower extremity. The patient was to receive pain medication as needed and work with physical therapy. She was to have hematocrits checked daily to see if any additional packed red blood cell transfusions would be required. She was to receive Lovenox for DVT prophylaxis. I will see the patient in the clinic for a wound check approximately 14 days postoperatively. Postoperatively, I got some full length femur films, x-rays. [id number]/[facility] #: [id number] [facility]
--- NOTE | 2018-07-25 11:18 | PN ---
Progress Note - Progress Note Date of Service: 07/25/18 SOAP: Subjective: Pt is doing well. Pain controlled. Denies CP/SOB, dizziness or calf pain Objective: PE- 72 y/o WDWN F NAD, A&Ox3 LLE- dressing c/d/i, calf soft NT, +DF/PF ankle, +2 DP pulse, SILT distally Vital Signs Temp Pulse Resp BP Pulse Ox 98.9 F 100 18 145/92 100 07/25/18 07:12 07/25/18 07:12 07/25/18 08:00 07/25/18 07:12 07/25/18 07:12 Laboratory Results - last 24 hr 07/24/18 07/24/18 07/25/18 04:54 21:36 05:18 WBC 7.2 RBC 4.28 Hgb 12.2 Hct 35 MCV 82 MCH 29 MCHC 35 RDW 16 H Plt Count 101 L MPV 6.8 L Blood Type O Positive Antibody Screen Negative Crossmatch See Detail Transfusion React Rpt Cancelled Donor Unit # Cancelled Post-Trans Blood Type Cancelled Post-Trans WILDER Cancelled Reaction Interpretation Cancelled Assessment: POD 4 ORIF L distal femur shaft fracture with retrograde IMN MS Severe osteopenia Plan: - Stable H&H improved. DC to home with VNS today - Keep dressing dry and intact - VNS to do dressing change on 08/02 - Lovenox 30 mg daily x 4 weeks for DVT prophylaxis - keflex 500 mg tid x 5 days to prevent infxn - OTC tylenol prn pain - Knee immobilizer for extra support/security - F/U Dr. Garza 14 days
[2018-07-25 11:40] VITALS: BP 156/73
--- NOTE | 2018-07-25 22:38 | DS ---
DISCHARGE SUMMARY: DATE OF ADMISSION: 07/20/18 DATE OF DISCHARGE: 07/25/18 ATTENDING SURGEON: Dr. Ino Garza* (dictated by ELSA Weaver). ADMITTING DIAGNOSIS: Left distal femur fracture, displaced, comminuted, and shortened. SECONDARY DIAGNOSES: 1. Multiple sclerosis. 2. Hypertension in the past. 3. Decubitus ulcer, persisted x2. 4. Anemia. 5. Chronic kidney disease. 6. Multiple urinary tract infections and history of sepsis due to them. CONSULTATIONS: PT, OT. HISTORY OF PRESENT ILLNESS: Ms. Allen is a 72-year-old female who presented to Dr. Garza's clinic with a left distal femur fracture, displaced, comminuted , shortened after an injury on 07/18/18 when she was being transferred from a mini pickup truck to a wheelchair that and palpable crunch in her left thigh. She was then admitted to the hospital and taken to the OR for surgical treatment. HOSPITAL COURSE: The patient was admitted to [facility] on 07/20/18 and kept overnight and she was taken to the OR on 07/21/[address] Garza performed an open reduction and internal fixation of the left distal femoral shaft fracture with retrograde intramedullary nail. Postoperatively, she recovered in the short stay surgical unit. She was advanced to a regular diet without difficulty and her pain was controlled with oral pain medications on postop day 1 and she was also restarted on home medications. Her labs and vitals remained stable. She continued to be nonweightbearing on her left lower extremity. DVT prophylaxis was managed with Lovenox and Keflex was started to prevent infection since she has an ostomy bag close to the incision. She was then orthopedically and medically stable for discharge to home with VNS services. PHYSICAL EXAMINATION: General: A 72-year-old well-developed, well-nourished female, in no acute distress. Alert and oriented x3. Appropriate mood and affect. Appropriate balance and coordination of the left lower extremity. Vitals: Temperature 98.2, pulse rate 93, respiratory rate 24, O2 sat 100% on room air, and blood pressure 156/73. Left lower extremity, the dressing is clean, dry, and intact. Calf soft, nontender. Positive dorsiflexion and plantar flexion of the ankle. +2 DP pulse. Sensation intact to light touch distally. DISCHARGE CONDITION: Stable. DISCHARGE MEDICATIONS: Home medications continued at discharge to include: 1. Probiotic 1 capsule by mouth daily. 2. Selenium 200 mcg 1 by mouth daily. 3. Folic acid 1 tab 800 mcg by mouth daily. 4. Vitamin D3 2000 units by mouth daily. 5. Iron 1 tab by mouth daily. 6. Zinc 25 mg by mouth daily. 7. Niacinamide 500 mg one half tab by mouth daily. 8. Vitamin B12 500 mcg by mouth daily. 9. Vitamin C 500 mg by mouth daily. 10. Vitamin E 400 units by mouth daily. 11. Vitamin B6 500 mg by mouth daily. 12. Vitamin K2 40 mcg by mouth daily. 13. Magnesium oxide 400 mg by mouth daily. 14. Glucosamine 1000 mg capsules by mouth daily. 15. Fish oil 1000 mg by mouth twice a day. 16. CoQ10 1 cap by mouth daily. 17. Tylenol 650 mg by mouth every 6 hours as needed for pain. New medications at discharge to include: 1. Keflex 500 mg 1 by mouth 3 times a day x5 days to prevent infection. 2. Lovenox 30 mg/0.3 mL syringe 30 mg subcutaneous daily x30 days postop. DISCHARGE INSTRUCTIONS: The patient will continue to be nonweightbearing on the left leg. She should keep her dressing dry and intact, VNS to do dressing change on 08/02/18. The patient should take the old dressing down and apply Betadine and ChloraPrep around the incision of the upper thigh, then apply a dry sterile dressing with gauze and Tegaderm. For the knee dressing, they should take the old dressing down, then redress with gauze and Keith. They should keep the massiel and sutures intact. Regular diet with increased fluid and fiber to prevent constipation and she should use stool softeners as needed and call the office with no bowel movement within 48 hours. Continue physical therapy and occupational therapy exercises as shown. Use a knee immobilizer for stability and support. Okay to remove for hygiene. DVT prophylaxis with Lovenox 1 injection subcu daily x4 weeks and Keflex 500 mg 1 by mouth 3 times a day x5 days to prevent infection. She should use Tylenol as needed for pain, maximum of 400 mg a day. She should call the orthopedic office if this is not enough to control her pain. She will follow up with Dr. Garza in 2 weeks. She should call for an appointment. The massiel will be removed at that time and she may call the office with any questions and concerns. ELSA WEAVER [id number]/[facility] #: [id number] [facility]ENTERMonserrat
== END 2018-07-25 14:15 | disposition home health service (06) | DRG 481 ==
LOC: SSU 17:52
PROVIDERS: ADMIT Orthopaedic Surgery; ATTEND Orthopaedic Surgery
PROC: 0QS906Z Reposition Left Femoral Shaft with Intramedullary Internal Fixation Device, Open Approach (ICD-10-PCS; principal; 2018-07-24)
PROC: 30233N1 Transfusion of Nonautologous Red Blood Cells into Peripheral Vein, Percutaneous Approach (ICD-10-PCS; 2018-07-24)
DX: S72.352A Displaced comminuted fracture of shaft of left femur, initial encounter for closed fracture (principal); E46 Unspecified protein-calorie malnutrition; Z68.1 Body mass index [BMI] 19.9 or less, adult; G35 Multiple sclerosis; M85.861 Other specified disorders of bone density and structure, right lower leg; N18.9 Chronic kidney disease, unspecified; M85.852 Other specified disorders of bone density and structure, left thigh; G62.9 Polyneuropathy, unspecified; L89.329 Pressure ulcer of left buttock, unspecified stage; L89.319 Pressure ulcer of right buttock, unspecified stage; L89.229 Pressure ulcer of left hip, unspecified stage; L89.219 Pressure ulcer of right hip, unspecified stage; N20.0 Calculus of kidney; I12.9 Hypertensive chronic kidney disease with stage 1 through stage 4 chronic kidney disease, or unspecified chronic kidney disease; M81.0 Age-related osteoporosis without current pathological fracture; D64.9 Anemia, unspecified; Z91.041 Radiographic dye allergy status; Z86.14 Personal history of Methicillin resistant Staphylococcus aureus infection; W31.89XA Contact with other specified machinery, initial encounter; Y92.9 Unspecified place or not applicable; Z99.3 Dependence on wheelchair; Z87.440 Personal history of urinary (tract) infections; Z93.3 Colostomy status; Z90.710 Acquired absence of both cervix and uterus; Z80.9 Family history of malignant neoplasm, unspecified; Z82.0 Family history of epilepsy and other diseases of the nervous system; Z91.02 Food additives allergy status; Z91.018 Allergy to other foods; Z91.048 Other nonmedicinal substance allergy status; Z93.6 Other artificial openings of urinary tract status; Z90.722 Acquired absence of ovaries, bilateral
CPT/HCPCS: 36415; 71045; 76001; 80048; 85025; 85027; 85610; 86078; 86850; 86900; 86901; 86922; 93005; A9270-GY; C1713; C1776; G8978-GP-CN; G8979-GP-CN; G8980-GP-CN; G8987-GO-CM; G8988-GO-CM; G8989-GO-CM; J0330; J0690; J1100; J1240; J1650; J1885; J2250; J2405; J2704; J3010; P9040